=== PATIENT | female | born 1945 | race Caucasian/White ===

== ENCOUNTER 2021-08-06 06:02 | Day surgery (SDC) | payer MEDICARE, BC, SELFPAY ==
[2021-08-06] MEDS: TETRACAINE 0.5% OPHTH 1 DROP EYE-LEFT ×2 (06:32→06:44)
[2021-08-06] MEDS: KETOROLAC OPHTH 0.5% 1 DROP EYE-LEFT ×2 (06:40→06:50)
--- NOTE | 2021-08-06 06:44 | SUR.OPER ---
SHOULDER SCOPE IRRIGATION: Continuous irrigation of operative shoulder with mixture of 3000 NACL and 1cc of 1:1000 epinephrine during procedure. KNEE SCOPE IRRIGATION: Continuous irrigation of operative knee with NACL during procedure. POSITIONING, TUCKED ARM: Patient positioned supine on OR bed. Perioperative team tucked arms bilaterally at patient side with drawsheet. Final approval of positioning by surgeon. POSITIONING SUPINE W/ARMS OUT: Patient positioned supine on OR bed. Perioperative team supported arms bilaterally on arm boards. Final approval of positioning by surgeon.
[2021-08-06] MEDS: ETHYL CHLORIDE 116 ML SPRAY 1 APPLIC TOPICAL (07:00)
[2021-08-06] MEDS: SODIUM CHLORIDE 0.9 % (FLUSH) 10 ML SYRINGE IVF (07:00)
[2021-08-06 07:06] VITALS: BP 189/91; PULSE 70; RESP 20; TEMP 36.5; O2SAT 98
[2021-08-06 07:08] VITALS: BMI 29.2
[2021-08-06] MEDS: BALANCED SALT IRRIG SOLN 15 ML EYE-LEFT ×2 (07:35→07:43)
[2021-08-06] MEDS: TETRACAINE 0.5% OPHTH 2 DROP EYE-LEFT (07:35)
[2021-08-06 07:49] VITALS: BP 189/98; PULSE 70; RESP 16; TEMP 36.4
--- NOTE | 2021-08-06 07:56 | W.ANESCHARGE ---
Anesthesia Charges Start Date/Time Anesthesia Start Date: 08/06/21 Anesthesia Start Time: 07:18 Stop Date/Time Anesthesia Stop Date: 08/06/21 Anesthesia Stop Time: 07:50 Summary Emergency: No Extremes of Age: Over 69-CPT 43412
--- NOTE | 2021-08-06 10:12 | W.ANESCHARGE ---
Anesthesia Charges Start Date/Time Anesthesia Start Date: 08/06/21 Anesthesia Start Time: 07:18 Stop Date/Time Anesthesia Stop Date: 08/06/21 Anesthesia Stop Time: 07:50 Summary Emergency: No Extremes of Age: Over 69-CPT 70598
--- NOTE | 2021-08-06 14:03 | P.PCN_ITS ---
Procedure Note Will [facility] bill your pro fee for this procedure?: Yes Procedure: SURGEON: Mela Oliveira MD PREOPERATIVE DIAGNOSIS: Nuclear sclerotic cataract, left eye. POSTOPERATIVE DIAGNOSIS: Nuclear sclerotic cataract, left eye. NAME OF OPERATION: Phacoemulsification of cataract with posterior chamber intraocular lens implantation in the left eye. ANESTHESIA: Topical. ESTIMATED BLOOD LOSS: Less than 2 cc. COMPLICATIONS: None. PATHOLOGY SPECIMEN: None. INDICATIONS: See consult note for details. The risks, benefits and alternatives of the procedure were explained to the patient, who elected to proceed and signed informed consent to do so. PROCEDURE: The patient was brought to the pre-holding area where the left eye was identified as the operative eye. I placed my initials above this eye. The patient received eye drops consisting of 0.5% tetracaine, 1% tropicamide, 10% phenylephrine, and ketorolac. The patient was then brought to the operating room where the left eye was again identified as the operative eye. The eye was prepped with Betadine and draped in the usual sterile ophthalmic fashion. A #15 super-sharp blade was used to create a paracentesis site. 1% non-preserved intracameral lidocaine was injected into the anterior chamber. Viscoat was injected into the anterior chamber. A 2.4 mm keratome was used to create a three-plane self-sealing incision 1 mm anterior to the temporal limbus. A cystotome was used to create an anterior capsular leaflet. The Utrata forceps were used to extend this to form a continuous curvilinear capsulorrhexis. Hydrodissection was performed. The cataract was removed with phacoemulsification using the mxpypm-hec-uwconwb technique. The irrigation and aspiration tip was used to remove the remaining cortex. Healon was injected into the capsular bag. An GLENN [id number] intraocular lens of 19.5 diopters was injected into the capsular bag. The irrigation and aspiration tip was used to remove the remaining viscoelastic. Balanced salt solution on a cannula was used to hydrate the wound, and the wound was found to be watertight. The pupil was noted to be round. DISPOSITION: The patient was taken to the recovery room and discharged to home in stable condition. The patient was instructed to call me or go to the emergency department with any sudden change, including dramatic loss of vision, severe pain in the eye or eyebrow region, nausea, or vomiting. The patient will follow up in the clinic tomorrow morning.
== END 2021-08-06 08:30 | disposition home or self-care (01) ==
PROVIDERS: PCP Family Medicine; Visit Provider Ophthalmology
PROC: (CPT 66984; principal; 2021-08-06 06:15)
DX: H25.12 Age-related nuclear cataract, left eye (principal)
CPT/HCPCS: 66984; 142; 99100; A9270; J2250; J3010; V2632

== ENCOUNTER 2021-11-07 12:51 | Outpatient (CLI) | payer MEDICARE, BC, SELFPAY | END 2021-11-07 12:52 | disposition home or self-care (01) | LOC: RAD 12:52 | PROVIDERS: PCP Family Medicine; Visit Provider Internal Medicine Pulmonary Disease | DX: R06.00 Dyspnea, unspecified (principal); I35.1 Nonrheumatic aortic (valve) insufficiency; R94.30 Abnormal result of cardiovascular function study, unspecified | CPT/HCPCS: 93306 ==

== ENCOUNTER 2021-11-11 11:44 | Outpatient (CLI) | payer MEDICARE, BC, SELFPAY ==
--- NOTE | 2021-11-11 12:00 | CRLHL7_ITS ---
For Patients: As a result of the Century Cures Act, medical imaging exams and procedure reports are released immediately into your electronic medical record. You may view this report before your referring provider. If you have questions, please contact your health care provider. NUCLEAR MEDICINE VENTILATION PERFUSION LUNG SCAN, 11/11/2021 CLINICAL HISTORY: Dyspnea. TECHNIQUE: 3.4 mCi of mgfimgfpdt-25o-vgcersj MAA has been given intravenously for the perfusion scan. 1 mCi of futpfmkgzp-95c-yqefjgh DTPA has been given as an aerosol for the ventilation scan. FINDINGS: Ventilation imaging demonstrates mild to moderate central deposition of the radiotracer. Otherwise, there is relatively homogeneous distribution of the ventilation. The perfusion is better than the ventilation. There are no ventilation-perfusion mismatches. There is symmetric perfusion to both the right and left lungs. IMPRESSION: The study is low-probability for pulmonary emboli. MURTAZA GORDON M.D. Diagnostic/Nuclear Medicine Radiologist [email or web address] Transcribed: 4:[address]/Dictated by: Murtaza Gordon MD @ 11/11/2021 3:13:00 PM (Electronically Signed)
--- NOTE | 2021-11-11 13:00 | CRLHL7_ITS ---
For Patients: As a result of the Century Cures Act, medical imaging exams and procedure reports are released immediately into your electronic medical record. You may view this report before your referring provider. If you have questions, please contact your health care provider. INDICATION: Dyspnea TECHNIQUE: Chest 2 views. COMPARISON: 10/11/2018 FINDINGS: Cardiovascular and mediastinum: Heart size and vasculature are normal in caliber and appearance. Mediastinum is within normal limits. Lungs and pleural spaces: Lungs are clear. No sign of infiltrate or mass. No sign of pleural effusion. No pneumothorax. Stable 5 millimeter probable calcified granuloma left upper lobe lingular segment. Bones and soft tissues: No significant findings. IMPRESSION: No acute findings. Dictated by Esdras Kothari MD @ 11/11/2021 1:40:52 PM (Electronically Signed)
== END 2021-11-11 11:45 | disposition home or self-care (01) ==
LOC: NM 11:45
PROVIDERS: PCP Family Medicine; Visit Provider Internal Medicine Pulmonary Disease
DX: R06.00 Dyspnea, unspecified (principal)
CPT/HCPCS: 71046; 78582; A9540; A9567

== ENCOUNTER 2021-12-01 10:45 | Outpatient (RCR) | payer MEDICARE, BC, SELFPAY ==
--- NOTE | 2021-10-20 17:20 | OT.OPOE ---
OT Outpatient Ortho Eval OT Outpatient Ortho Eval Start: 10/20/21 16:31 Freq: Status: Active Protocol: Document 10/20/21 16:31 LCN (Rec: 10/20/21 17:10 LCN Desktop) E-signed By Krissy Goodman, OTR/L, CLT OT OP Ortho Eval Details Type Type Eval Complexity Low Outpatient History/Precautions Insurance Information Insurance Information Medicare B Current Condition/Medical Diagnosis Referring Provider Yue Lorenz MD Treatment Diagnosis B Hand pain per Primary OA of hand R and L. Date of Onset 10/14/21 Medical Conditions HTN,Metal Implants,Respiratory ,Fibromyalgia,Arthritis,Latex Allergy Other Conditions COPD, Chronic Fatigue Syndrome , long haul COVID w prolonged recovery Jan 2021 - April 2021 (Sudden bouts of strong fatigue after bathing and some executive function issues, over paid a tip while out, discovered 30 minutes later). H/O TKA 2013, 2018 swallow study. OA of hands, B CMC was diagnosed in [place]. Has progressed from CMC to MP and now to IP's of B thumbs, with >10 degree lateral drift at IP's. Right side is 80% more affected than the L hand side. Medical/Functional History Medical History Reviewed Yes Prior Level of Function/Mobility When pt moved here from [place] 4 years ago, she was much more active, exercising 3 days/week. The cold weather of [place] is easier on her lungs with COPD, but the isolation has been hard and necessary. She is trying to get back into using equipment at [facility]. , no children. Social History Employment Status Retired Current Occupation retired from [employer]. Hobbies Reading, [employer] [facility] Oriented Mental Status Comments Feeling forgetful, slightly scattered when overwhelmed, out in the community since her COVID recovery. Able to keep sequnce of her reading, timely with medications. Ortho Subjective Subjective Subjective Hawa's doing most of cooking due to her fatigue and severe hand pain. Needing help with lifting pots, pans, 1/2 gallon of milk, opening jars/bottles/cans. Handwriting is getting small and shaky. Has been dropping items, including cup of coffee . Has a hard time Manages pain with a hot cup of coffee in her hands, has arthritis gloves, not sure if she can find them. Pain Assessment Pain Present Pain Present Pain Reported Location R Hand/Thumb (moreso than L hand) Description Pressure,Dull, Achy,Throbbing, Cramping,With Movement, Heaviness Intensity 7 Goniometric Comments Goniometric Comments Goniometric Comments iWR EX to 60 of 70 B. Wrist FL to 70 of 85, pulls into R CMC. UD to 40 of 40 , tender at CMC base of R TH. RD 15 of 20. Limited EX of thumb CMC by final 35 degrees of end range. R TH Opposition to SF tip is 5/10 pain. 3/10 with touching RF. Clinical Trials Manager is 20# R ( 7/10 pn at CMC ) and 25# L w 3/10 pn. Donaldson pinch is 9.5# R ( TH IP pain 7 /10) and 14# L. 3 pt pinch is 10# R ( 4/10 pn at TH IP) and 9.5# L ( 4/10 pn at TH IP). OT Objective Data Hand Hand Dominance Right Sensation Sensation Assessment Summary Comments No numbness or tingling. Upper Extremity Special Tests Tenosynovitis Wrist Finklestein Test Positive Right Degenerative Arthritis Hand Trapeziometacarpal Joint Grind Test Positive Left,Positive Right OT Problems Problems Problems Decreased Strength,Decreased Range of Motion,Decreased Fine Motor,Decreased Coordination, Sensory Sensitivity,Lifting, Gripping,Pinching Problems Comments Fatigues to 9/10 effort level from bathing, loses her entire routine for the rest of the day afterwards. Is now having assist in community to wash her hair weekly/Wednesday salon day. Able to attend card club for 90 minutes, tires for the rest of the day after. Combined lunch outing afteran appointment and was affected into the next day. 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 Other Problems Writing,Opening Containers, Dressing,Fasteners Patient Potential Good Assessment Assessment Assessment Hawa Marie is a motivated 75 y /o female who at [facility] 4 years ago had been more active but coping well with her hand OA. Following COVID Jan 2021, struggling with rapid bouts of extended fatigue/chronic fatigue, feeling scattered/ executive function issues, and increased R hand/thumb pain/ edema deformity to the point of nearly not being able to use it at all. Given Hawa's s diagnosis of B hand OA and ? difficulty with edema, pain, ROM and strength loss of R hand/wrist/elbow , she would benefit from skilled OT to address these areas. Occupational Therapy Treatment Plan - OP Potential Rehabilitation Potential Good Set Goals Goals Set with Patient Yes Goals Goals In 8 weeks, Hawa will demonstrate:? 1) Decreased pn to <2/10 80% of the time with sustained gripping, carrying dishes, reading books, light meal prep and playing cards. 2) I HEP for stretching, gradual strengthening and self mgmt strategies. 3) improved L anglesmith helper strength to 25# and pinch to 12# with R thumb pain < 2/10. 4) ??Pt to be fit with functional bracing (for CMC, wrist) and use adaptive strategies to protect joint integrity to support less pain with ADL. 5) Improved energy conservation by identifying 4 strategies she can use to conserve energy during daily ADL/IADL routines, demonstrate improved standing tolerance for kitchen/home tasks to 20 min at < 4/10 effort level, and score 5 pts improvement on the Fatigue FACIT -F scale. Target Date 01/18/22 Progress set Treatment Plan Treatment Plan Evaluation,Joint Mobilization, Manual Therapy,Paraffin Bath, Splinting,Ultrasound, Therapeutic Exercise,Self-Care /Home Management,Education Expected Frequency 1x Week Expected Duration 8-10 Weeks Certification Certification I Certify That: Therapy Services Provided, Therapy Plan Established, Therapy Plan Reviewed / / MD/PCP Signature, NPI # Thanks for the referral!?If you could kindly review our Medicare cert and sign/fax return with your NPI that'd be so helpful!?Thanks and have a great day!?? TALON Yuan/chayo
== END 2022-08-27 23:59 | disposition home or self-care (01) ==
PROVIDERS: PCP Family Medicine; Visit Provider Family Medicine
DX: M19.041 Primary osteoarthritis, right hand (principal); Z51.89 Encounter for other specified aftercare
CPT/HCPCS: 97035; 97110; 97140; 97165; 97535; 97760; X5282

== ENCOUNTER 2022-02-25 07:39 | Outpatient (CLI) | payer MEDICARE, BC, SELFPAY ==
[2022-02-25 11:47] LABS: Albumin* 4.3 g/dL (3.3-5.0)
[2022-02-25 11:48] LABS: Chloride* 107 mmol/L (96-114); Potassium* 4.3 mmol/L (3.6-5.1); Sodium* 141 mmol/L (135-149)
[2022-02-25 11:50] LABS: Bilirubin Total* 0.6 mg/dL (0.1-1.5); Carbon Dioxide* 26 mmol/L (20-32); Cholesterol* 155 mg/dL (90-199); Estimated Glomerular Filt Rate 58 ml/min
[2022-02-25 11:51] LABS: Alanine Aminotransferase* 21 U/L (4-35); Alkaline Phosphatase* 118 U/L (40-150); Aspartate Amino Transferase* 26 U/L (12-35); Blood Urea Nitrogen* 16 mg/dL (7-30); Calcium* 9.7 mg/dL (8.4-10.6); Glucose* 93 mg/dL (60-115); HDL Cholesterol* 45 mg/dL (>=50); LDL Cholesterol Calculated 85 mg/dL (<100); Total Protein* 7.1 g/dL (6.0-8.3); Triglycerides* 124 mg/dL (40-149)
== END 2022-02-25 07:40 | disposition home or self-care (01) ==
PROVIDERS: PCP Family Medicine; Visit Provider Family Medicine
DX: E78.5 Hyperlipidemia, unspecified; I10 Essential (primary) hypertension; E03.9 Hypothyroidism, unspecified; D64.9 Anemia, unspecified; R53.83 Other fatigue
CPT/HCPCS: 80053; 80061; 82728; 84443

== ENCOUNTER 2022-03-10 14:17 | Outpatient (CLI) | payer MEDICARE, BC, SELFPAY ==
--- NOTE | 2022-03-10 14:45 | MR_ITS ---
[address] [address] Phone:?[phone] Fax:?[phone] Referring Physician Information: Yue Lorenz M.D. [address] [facility] [address] Phone:?[phone] Fax:?[phone] Patient:Nadeem Marie D.O.B:?1945 Sex:?Female Phone:? [facility] MRN:?[id number] Exam Date:?03/10/2022 ? EXAM: MRI of the LEFT HIP, without contrast CLINICAL: Bilateral hip pain. Also increased sclerotic changes noted on recent radiographs. COMPARISONS: X-rays dated 02/27/2022. TECHNICAL: MR sequences of the left hip: Axials: PD FS Axial oblique: PD Coronals: PD, T2 Coronal pelvis: T1 and STIR Sagittals: PD and T2 SEDATION: None. CONTRAST: None. FINDINGS: Hip joint: Small volume of fluid is present within the left hip joint. There is mild synovitis within the left hip joint without discrete loose bodies. Grade 2-3 chondral thinning is seen to involve the superior and superomedial left hip joint. Labrum: Evaluation is relatively limited on the axial obliques sequence secondary to artifact. Scattered degenerative changes are seen to involve the majority of the labrum. No perilabral cyst formation identified. Proximal femur: No marrow edema, fracture or osteonecrosis. No discrete osseous lesion identified. Acetabulum: Heterogeneity of the marrow of the left hemipelvis may include subchondral marrow edema involving the left acetabulum about the left hip. There is small subchondral cystic change involving the superior acetabulum. No acetabular fracture site is identified. Ligamentum teres: Intact and unremarkable. Pelvis osseous structures: There is increased heterogeneity of the marrow of the left hemipelvis with a coarsened trabecular pattern of the left hemipelvis seen on the recent radiographs suggestive of Paget's disease. No evidence of pelvic fracture and no discrete pelvic lesions identified. Sacroiliac joints are maintained without marrow signal changes to suggest sacroiliitis or significant arthrosis. No evident arthrosis or changes of osteitis pubis at the symphysis pubis. Myotendinous structures: Gluteus abductors: No convincing insertional tendinopathy or tear of gluteus minimus or medius. Adductors: No demonstrable tendinopathy or strain/tear. Pre-pubic aponeurotic complex: Intact, without evidence of common rectus abdominis-adductor longus aponeurosis or pubic plate lesion. Hamstrings: Intact semimembranosus, semitendinosus and biceps femoris tendons, without tendinopathy or tear. Flexors: Intact iliopsoas and rectus femoris, without strain/tear. External rotators: Intact. The ischiofemoral and quadratus femoris spaces are within normal limits. Gluteal aponeurotic fascia and IT band: Unremarkable. Bursae: No demonstrable trochanteric or iliopsoas bursitis. Intrapelvic structures: Although evaluation of the intrapelvic structures is limited on this exam, no convincing pelvic mass is identified as visualized. IMPRESSION: 1. Grade 2-3 chondral thinning involving the superior and superomedial left hip joint with subchondral reactive change involving the left acetabulum. Scattered degenerative changes involving the majority of the acetabular labrum. 2. 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 3. No evidence of fracture, avascular necrosis or myotendinous injury. [facility] Electronically signed on 03/11/2022 8:41:00 AM by Davey Chiu D.O.
== END 2022-03-10 14:18 | disposition home or self-care (01) ==
PROVIDERS: PCP Family Medicine; Visit Provider Family Medicine
DX: M25.552 Pain in left hip (principal); G89.29 Other chronic pain
CPT/HCPCS: 73721

== ENCOUNTER 2022-06-09 14:53 | Outpatient (CLI) | payer MEDICARE, BC, SELFPAY ==
--- NOTE | 2022-06-09 15:20 | CRLHL7_ITS ---
For Patients: As a result of the Cures Act, medical imaging exams and procedure reports are released immediately into your electronic medical record. You may view this report before your referring provider. If you have questions, please contact your health care provider. BILATERAL SCREENING MAMMOGRAM WITH COMPUTER-AIDED DETECTION AND TOMOSYNTHESIS TECHNIQUE: CC and MLO views were obtained. These mammographic images have been obtained using full-field digital technique. These mammographic images were interpreted with the benefit of computer-aided detection. Breast Tomosynthesis was used in this interpretation. COMPARISON FILM: 03/19/21, 03/15/20, 03/09/19. FINDINGS: There are scattered areas of fibroglandular density IMPRESSION: There is no radiographic evidence for malignancy. ASSESSMENT: BI-RADS Category 1: Negative RECOMMENDATION: Routine screening mammogram in 1 year. A lay language report of this examination will be provided to the patient. Esdras Alexander M.D. Diagnostic Radiologist [email or web address] [email or web address]/[email or web address] Transcribed: 1:49 p.fior hager/Dictated by: Esdras Alexander MD @ 06/10/2022 11:12:00 AM (Electronically Signed)
== END 2022-06-09 14:54 | disposition home or self-care (01) ==
LOC: MAMMO 14:54
PROVIDERS: PCP Family Medicine; Visit Provider Family Medicine
DX: Z12.31 Encounter for screening mammogram for malignant neoplasm of breast (principal)
CPT/HCPCS: 77063; 77067

== ENCOUNTER 2023-02-19 07:50 | Outpatient (CLI) | payer MEDICARE, BC, SELFPAY ==
--- OUTSIDE RECORDS SUMMARY | 2023-02-25 15:48 | XMS_ITS | Referral Summary ---
Author Name Unknown Organization [facility] Address [address] [place] [id number] Care Team Providers Care Editor House Organ Name Role Phone Yue Lorenz MD Primary Care Provider + Allergies Active Allergy Reactions Criticality Noted Date Comments Latex 11/22/2018 Social History Tobacco Use Types Packs/Day Years Used Date Smoking Tobacco: Never Assessed Adolescent Education Answer Date Record ed Getting School Help Needed Not on file 10/30 Sex and Gender Information Value Date Recorded Sex Assigned at Not on file Gender Identity Not on file Sexual Orientation Not on file Plan of Treatment Not on file Care Teams Editor House Organ Relationship Specialty Start Date End Date Yue Lorenz MD [facility] [address] [place] [address] PCP - General Family Practice 11/09/18
--- OUTSIDE RECORDS SUMMARY | 2023-02-25 15:48 | XMS_ITS | Encounter Summary ---
Author Name Unknown Organization [facility] Address [address] [place] [address] Care Team Providers Care Machine Operator Packaging Name Role Phone Unavailable Primary Care Provider Unavailabl e Reason for Visit * Outpatient (Routine) - Closed Specialty Diagnoses / Procedures Referred By Paxton cortes Referred To Contact Diagnoses Fatigue Insomnia Procedures Home sleep apnea test (HSAT) Francisco Javier Arvizu M.D., M.P.H. [address] [address] [facility] Referral ID Status Reason Start Date Expiration Date Visits Re quested Visits Authorized [id number] Closed 01/13/2022 01/13/2023 1 1 Encounter Details Date Type Department Care Team (Latest Contact Info) Description 03/18/2022 7:11 AM [facility] - 03/21/2022 11:59 PM [facility] [place], [place] [address] [place] [address] Francisco Javier Arvizu M.D., M.P.H. [address] [address] Discharge Disposition: Home or Self Care Social History Tobacco Use Types Packs/Day Years Used Date Smoking Tobacco: Never Smokeless Tobacco: Never Humiliation, Afraid, Rape, and Kick questionnair e Answer Date Recorded Within the last year, have y ou been afraid of your partner or ex-partner? No 03/19/2022 Within the last year, have y ou been humiliated or emotionally abused in other ways by your partner or ex-partner? No Within the last year, have y ou been kicked, hit, slapped, or otherwise physically hurt by your partner or ex-partner? No 03/19/2022 Within the last year, have y ou been raped or forced to have any kind of sexual activity by your partner or ex-partner? No 03/19/2022 Social Connection and Isolat ion Panel [NHANES] Answer Date Recorded In a typical week, how many times do you talk on the phone with family, friends, or neighbors? Once a week 03/19/2022 How often do you get togethe r with friends or relatives? Once a week 03/19/2022 How often do you attend chur or alevism services? More than 4 times per year 03/19/2022 Do you belong to any clubs o r organizations such as roman catholic groups, unions, fraternal or athletic groups, or school groups? Yes 03/19/2022 How often do you attend meet ings of the clubs or organizations you belong to? More than 4 times per year 03/19/2022 Are you , , di vorced, , never , or living with a partner? 03/19/2022 AUDIT-C Answer Date Recorded Q1: How often do you have a drink containing alcohol? Monthly or less 03/19/2022 Q2: How many drinks containi ng alcohol do you have on a typical day when you are drinking? Patient does not drink Q3: How often do you have si x or more drinks on one occasion? Never 03/19/2022 Overall Financial Resource Strain (CARDIA) Answe r Date Recorded How hard is it for you to pa y for the very basics like food, housing, medical care, and heating? Not hard at all 03/19/2022 [facility] of Occupat ional Health - Occupational Stress Questionnaire Answer Date Recorded Do you feel stress - tense, restless, nervous, or anxious, or unable to sleep at night because your mind is troubled all the time - these days? To some extent 03/19/2022 Exercise Vital Sign Answer Date Recorde d On average, how many days pe r week do you engage in moderate to strenuous exercise (like a brisk walk)? 0 days 03/19/2022 On average, how many minutes do you engage in exercise at this level? 0 min 03/19/2022 Hunger Vital Sign Answer Date Recorded Within the past 12 months, y ou worried that your food would run out before you got the money to buy more. Never true 03/19/19 Within the past 12 months, t he food you bought just didn't last and you didn't have money to get more. Never true 03/19/2022 PRAPARE - Transportation Answer Date Re corded In the past 12 months, has l ack of transportation kept you from medical appointments or from getting medications? No 10/2022 In the past 12 months, has l ack of transportation kept you from meetings, work, or from getting things needed for daily living? No 03/19/2022 Housing Stability Vital Sign Answer Romulo e Recorded In the last 12 months, was t here a time when you were not able to pay the mortgage or rent on time? No 03/19/2022 In the last 12 months, how many places have you lived? 1 03/19/2022 In the last 12 months, was t here a time when you did not have a steady place to sleep or slept in a residential (including now)? No 03/19/2022 Nutrition Answer Date Recorded Nutrition: EVOO Fat Source No 03/19 On average, how many serving s of fruits and vegetables do you eat per day (serving size is equal to 1 cup or approximately the size of a tennis ball)? 4-5 03/19/2022 Dental Answer Date Recorded Dental: Regular Dentist Yes 03/19/19 Employment Answer Date Recorded Employment status Retired 03/19/2022 Education Answer Date Recorded What is the highest level of school you have completed or the highest degree you have received? 12th grade 03/19/2022 Sex and Gender Information Value Date Recorded Sex Assigned at Female 03/19/2022 4:22 PM MECHANICAL DRAWING TEACHER Gender Identity Female 03/19/2022 4:22 PM MECHANICAL DRAWING TEACHER Sexual Orientation Straight 03/19/2022 4: 22 PM MECHANICAL DRAWING TEACHER documented as of this encounter Medications at Time of Discharge Medication Sig Dispensed Refills Start Date End Date acetaminophen (TYLENOL 8 HR) 650 mg ER tablet 1,300 mg as needed. 0 10/14/2021 acetaminophen (TYLENOL) 500 mg tablet Take 500 mg by mouth every 6 (six) hours as needed for pain. 0 albuterol 90 mcg/actuation inhaler Inhale every 6 (six) hours as needed for wheezing. 0 amoxicillin (AMOXIL) 875 mg tablet Take 875 mg by mouth as needed. For phlegm [address] tablet Take 81 mg by mouth daily. 0 atorvastatin (LIPITOR) 40 mg tablet 40 mg daily. 0 12/13/2021 bisacodyL (DULCOLAX) 5 mg EC tablet Take 10 mg by mouth once. 0 calcium carbonate-vitamin D3 (Calcium 600 with Vitamin D3) 600 mg-10 mcg (400 unit) tablet,chewable Chew 2 (two) times a day. 0 cetirizine (ZyrTEC) 10 mg tablet Take 10 mg by mouth daily. 0 diphenhydrAMINE-acetamin ophen (TYLENOL PM) 25-500 mg per tablet Take 1 tablet by mouth at bedtime as needed for sleep. 0 guaiFENesin (MUCINEX) 600 mg 12 hr tablet Take 600 mg by mouth as needed for cough. 0 metoprolol succinate (TOPROL-XL) 50 mg 24 hr tablet 50 mg 2 (two) times a day. 0 11/20/2021 montelukast (SINGULAIR) 10 mg tablet daily. 0 12/13/2021 gihoihnbajve-ghrngzwc-BF -lycopene-lutein (CENTRUM SILVER) 0.4 mg-300 mcg- 250 mcg tablet Take 1 tablet by mouth daily. 0 polyethylene glycol (MIRALAX) 17 gram powder packet Take 17 g by mouth daily. Dissolve each 17 g dose in 240 mLs (8 ounces) of beverage. 0 predniSONE (DELTASONE) 10 mg tablet Take 10 mg by mouth as needed. Excessive phlegm and shortness of breath 0 Synthroid 88 mcg tablet Take 88 mcg by mouth daily. 0 12/26/2021 Trelegy Ellipta 100-62.5-25 mcg inhaler daily. One puff daily 0 12/14/19 22 UNABLE TO FIND Med Name: ZZZ Quill 0 wheat dextrin (BENEFIBER) 3 gram/3.5 gram packet Take 1 packet by mouth daily. 0 documented as of this encounter Plan of Treatment Not on file documented as of this encounter Procedures Procedure Name Priority Date/Time Associated Diagnosis Comments CA CLINICAL RESEARCH MONITOR STDY UNATTND HRT RATE O2 Routine 03/18/2022 8:19 AM MECHANICAL DRAWING TEACHER Fatigue Insomnia documented in this encounter Results * Home sleep apnea test (HSAT) (03/18/2022 8:19 AM MECHANICAL DRAWING TEACHER) Narrative ONBASE - 03/18/2022 1:13 PM MECHANICAL DRAWING TEACHER SUMMARY Home sleep apnea testing (WatchPaT) demonstrated a probable apnea hypopnea index (pAHI) of 8.2 per hour, with probable respiratory disturbance index (pRDI) of 25.7 per hour, ??and with 0.4 central apneas per hour. Oxyhemoglobin saturation eduard was 90 %, mean was 94 %, and T88 (recording time percentage below ideal) was 0.0 minutes). Total recording time was 408.0 ??minutes, with estimated total sleep time of 309.0 minutes. CLINICAL INTERPRETATION Mild obstructive sleep apnea. ?? RECOMMENDATION: Autotitrating CPAP spanning 5-15 cm H20 can be prescribed for the patient, with appropriate counselling regarding PAP usage, if/as clinically indicated. Francisco Javier Arvizu M.D., M.P.H. SLEEP CENTER ORDERABLES ONBASE NA documented in this encounter Visit Diagnoses Not on filedocumented in this encounter
--- OUTSIDE RECORDS SUMMARY | 2023-02-25 15:48 | XMS_ITS | Referral Summary ---
Author Name Unknown Organization [facility] Address [address] [place] [address] Care Team Providers Care Development Administrator Name Role Phone Unavailable Primary Care Provider Unavailabl e Source Comments Patient records contain information from all sites at [facility]. For routine questions regarding patient records, call [phone] during business hours, M-F 8:00 AM - 5:00 PM Central Time. Record requests for emergency care only can be directed to [phone] at any time.[facility] Allergies Active Allergy Reactions Criticality Noted Date Comments Cefdinir Rash 01/13/2022 Clarithromycin Rash 01/13/2022 Dextromethorphan Rash 01/13/2022 Guaifenesin Rash 01/13/2022 Latex Rash 11/22/2018 Methylprednisolone Other (see comments) 022 Blood pressure problem Moxifloxacin Other (see comments) 01/13/2022 Phenylephrine Rash 01/13/2022 Medications Medication Sig Dispensed Refills Start Date End Date Status atorvastatin (LIPITOR) 40 mg tablet 40 mg daily. 0 12/13/2021 Active Trelegy Ellipta 100-62.5-25 mcg inhaler daily. One puff daily 0 12/13/2021 Active Synthroid 88 mcg tablet Take 88 mcg by mouth daily. 0 12/26/2021 Active metoprolol succinate (TOPROL-XL) 50 mg 24 hr tablet 50 mg 2 (two) times a day. 0 11/20/2021 Active montelukast (SINGULAIR) 10 mg tablet daily. 0 12/13/2021 Active predniSONE (DELTASONE) 10 mg tablet Take 10 mg by mouth as needed. Excessive phlegm and shortness of breath 0 Active amoxicillin (AMOXIL) 875 mg tablet Take 875 mg by mouth as needed. For phlegm 0 Active albuterol 90 mcg/actuation inhaler Inhale every 6 (six) hours as needed for wheezing. 0 Active guaiFENesin (MUCINEX) 600 mg 12 hr tablet Take 600 mg by mouth as needed for cough. 0 Active aspirin [address] tablet Take 81 mg by mouth daily. 0 Active multivitamin-minerals -WF-ryehjlyb-dukubs (CENTRUM SILVER) 0.4 mg-300 mcg- 250 mcg tablet Take 1 tablet by mouth daily. 0 Active bisacodyL (DULCOLAX) 5 mg EC tablet Take 10 mg by mouth once. 0 Active calcium carbonate-vitamin D3 (Calcium 600 with Vitamin D3) 600 mg-10 mcg (400 unit) tablet,chewable Chew 2 (two) times a day. 0 Active cetirizine (ZyrTEC) 10 mg tablet Take 10 mg by mouth daily. 0 Active polyethylene glycol (MIRALAX) 17 gram powder packet Take 17 g by mouth daily. Dissolve each 17 g dose in 240 mLs (8 ounces) of beverage. 0 Active wheat dextrin (BENEFIBER) 3 gram/3.5 gram packet Take 1 packet by mouth daily. 0 Active diphenhydrAMINE-aceta minophen (TYLENOL PM) 25-500 mg per tablet Take 1 tablet by mouth at bedtime as needed for sleep. 0 Active acetaminophen (TYLENOL) 500 mg tablet Take 500 mg by mouth every 6 (six) hours as needed for pain. 0 Active UNABLE TO FIND Med Name: ZZZ Quill 0 A ctive acetaminophen (TYLENOL 8 HR) 650 mg ER tablet 1,300 mg as needed. 0 10/14/2021 Activ e Active Problems Problem Noted Date Diagnosed Date Obstructive Sleep Apnea Adult 03/24/2022 Fatigue 01/13/2022 Insomnia 01/13/2022 Social History Tobacco Use Types Packs/Day Years Used Date Smoking Tobacco: Never Smokeless Tobacco: Never Tobacco Cessation:Counseling Given: Not Answered Humiliation, Afraid, Rape, and Kick questionnair e [...] 03/19/2022 How often do you attend chur ch or rastafarian services? More than 4 times per year 03/19/2022 Do you belong to any clubs o r organizations such as religious groups, unions, fraternal or athletic groups, or [...] and heating? Not hard at all 03/19/2022 [facility] of Occupat ional Health - Occupational Stress [...] place to sleep or slept in a usp (including now)? No 03/19/2022 Nutrition Answer Date [...] Sex Assigned at Female 03/19/2022 4:22 PM TIMBER FALLER Gender Identity Female 03/19/2022 4:22 PM TIMBER FALLER Sexual Orientation Straight 03/19/2022 4: 22 PM TIMBER FALLER Last Filed Vital Signs Vital Sign Reading Time Taken Comments Blood Pressure 133/81 03/24/2022 8:18 AM TIMBER FALLER Pulse 79 03/24/2022 8:18 AM TIMBER FALLER Temperature - - Respiratory Rate - - Oxygen Saturation 98% 01/13/2022 9:07 AM TIMBER FALLER room air Inhaled Oxygen Concentration - - Weight 74.1 kg (163 lb 5.8 oz) 03/24/2022 8:18 A M TIMBER FALLER Height 157.4 cm (5' 1.97) 01/13/2022 10:46 AM C Body Mass Index 29.91 01/13/2022 10:46 AM TIMBER FALLER Plan of Treatment Not on file
--- OUTSIDE RECORDS SUMMARY | 2023-02-25 15:48 | XMS_ITS | Encounter Summary ---
Author Name Unknown Organization [facility] Address [address] [place] [address] Care Team Providers Care Medical Practice Assistant Name Role Phone Unavailable Primary Care Provider Unavailabl e Reason for Visit * Reason Comments Sleep test results Follow up * Outpatient (Routine) - Closed Specialty Diagnoses / Procedures Referred By Paxton cortes Referred To Contact Neurology Francisco Javier Arvizu M.D., M.P.H. [address] [address] [facility] Referral ID Status Reason Start Date Expiration Date Visits Re quested Visits Authorized [id number] Closed 01/13/2022 01/12/2025 1 1 Encounter Details Date Type Department Care Team (Late st Contact Info) Description 03/24/2022 8:45 AM [facility]OS[facility]ITAL[facility] Office Visit Department of Neurology in [address] [address] Francisco Javier Arvizu M.D., M.P.H. [address] [address] Fatigue (Primary Dx); Insomnia; Obstructive Sleep Apnea Adult Social History Tobacco Use Types Packs/Day Years [...] How often do you attend chur or mormonism services? More than 4 times per year 03/19/2022 Do you belong to any clubs o r organizations such as episcopalian groups, unions, fraternal or athletic groups, or [...] and heating? Not hard at all 03/19/2022 [facility] of Occupat ional Health - Occupational Stress [...] place to sleep or slept in a snf (including now)? No 03/19/2022 Nutrition Answer Date [...] Sex Assigned at Female 03/19/2022 4:22 PM [facility]OSPITAL[employer] Gender Identity Female 03/19/2022 4:22 PM [facility] Sexual Orientation Straight 03/19/2022 4: 22 PM [facility]OSPITAL[facility] [employer] documented as of this encounter Last Filed Vital Signs Vital Sign Reading Time Taken Comments Blood Pressure 133/81 03/24/2022 8:18 AM HOSPITAL[facility] WORKERS Pulse 79 03/24/2022 8:18 AM [facility]OS[facility] Temperature - - Respiratory Rate - - Oxygen Saturation - - Inhaled Oxygen Concentration - - Weight 74.1 kg (163 lb 5.8 oz) 03/24/2022 8:18 A M HOSPITAL[facility] Height - - Body Mass Index 29.91 01/13/2022 10:46 AM [facility]PITAL[facility] documented in this encounter Progress Notes * Francisco Javier Arvizu M.D., M.P.H. - 03/24/2022 8:45 AM [facility] SUBJECTIVE HISTORY OF PRESENT ILLNESS This 76-year-old patient returns for follow-up after her WatchPAT home sleep apnea test. You will recall the patient is referred by a sleep physician in the [facility], a smoke eater for symptoms of fatigue started after COVID. Her WatchPAT home sleep apnea test was reviewed today and showed a probable AHI of 8.2 and probable RDI of 25.7. The patient was skeptical that she would slept at all. She is one who likes to document things and she brings in a sleep log included what of the night shewear that test. She estimates she only slept about an hour that night but this total sleep time estimated to be just over 5 hours according to the Watch-PAT study. I explained to her that most peoplesleep more than they think they do and that that was my experience as well. She says she could not wear a CPAP mask and we discussed positional therapy which would work a little bit for her. Her AHI is worse when she is supine and in REM sleep according to the Watch-PAT. Thepatient is skeptical that she sleeps on her back but the Watch-PAT recorded that she did. We also talked about a mandibular advancement device and the inspire device. Unfortunately for her her sleep apnea is not bad enough for the inspire device add she would have already had failed the CPAP device. She brings in a sleep log that shows that she is in bed for several more hours per day then she sleeping. OBJECTIVE PHYSICAL EXAMINATION BP 133/81 (BP Location: Right arm, Patient Position: Sitting, Cuff Size: Regular) Pulse 79 Wt 74.1 kg BMI 29.91 kg/m?? Neurological Exam Cognition: Alert and oriented x 4. Cranial Nerves: II-XII intact and symmetric. Gait: Normal. 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 I think inflammation in her MORTGAGE BANKER partly explains some of her fatigue. We do not have an easy way to treat that. I shared that with her. #2 Insomnia She has some degree of insomnia as noted on her sleep log. I think it is potentially less than she believes because she slept substantially more Watch- PAT than she did on her personal sleep log. #3 Obstructive Sleep Apnea Adult She is mild obstructive sleep apnea that is worse when supine and in REM sleep she does not want treatment for that now but I do believe that treating her sleep disordered breathing be one of the keys to try to improve in her fatigue if not the only answer. Other orders - Neurology office visit (clinic) I personally spent 40 minutes in care of the patient today. Time includes both non face to face andface to face patient care. Patient was counseled regarding weight as a risk factor for sleep disordered breathing. The patientwas counseled on driving while drowsy. Francisco Javier Arvizu M.D., M.P.H. [employer] WORKERS documented in this encounter Plan of Treatment Not on file documented as of this encounter Visit Diagnoses Diagnosis Fatigue- Primary Insomnia Obstructive Sleep Apnea Adult documented in this encounter
--- OUTSIDE RECORDS SUMMARY | 2023-02-25 15:48 | XMS_ITS | Clinical Summary ---
Author Name Unknown Organization [facility] Address [address] [place] [id number] Care Team Providers Care Sales Solutions Associate Name Role Phone Yue Lorenz MD Primary [...] Orientation Not on file Plan of Treatment Health Maintenance Due Date Last Done Comments ADVANCE CARE PLANNING 1945 ANNUAL REVIEW OF HM ORDERS 1945 DEXA 1945 COVID-19 Vaccine (#1) 04/30/1945 HEPATITIS C SCREENING 1962 DTAP/TDAP/TD IMMUNIZATION (1 - Tdap) 1969 LIPID 1989 ZOSTER IMMUNIZATION (1 of 2) 1994 RSV VACCINE ( & 60+ ) (1 - 1-dose 60+ series) 2004 FALL RISK ASSESSMENT 2009 MEDICARE ANNUAL WELLNESS VISIT 2009 Pneumococcal Vaccine: 65+ Ye ars (1 of 1 - PCV) 2009 INFLUENZA VACCINE (#1) 2022 11/09/2018 PHQ-2 (once per calendar year) 2023 HPV IMMUNIZATION Aged Out No longer e ligible based on patient's age to complete this topic IPV IMMUNIZATION Aged Out No longer e ligible based on patient's age to complete this topic MENINGITIS IMMUNIZATION Aged Out No l onger eligible based on patient's age to complete this topic RSV MONOCLONAL ANTIBODY Aged Out No l onger eligible based on patient's age to complete this topic Care Teams Sales Solutions Associate Relationship Specialty Start Date End Date Yue Lorenz MD [facility] [address] [place] [address] PCP - General Family Practice 11/09/18
--- OUTSIDE RECORDS SUMMARY | 2023-02-25 15:48 | XMS_ITS | Clinical Summary ---
Author Name Unknown Organization [facility] Address [address] [place] [address] Care Team Providers Care Pressure Steamer Tender Name Role Phone Unavailable Primary Care Provider Unavailabl e Source Comments Patient records contain information from all sites at [facility]. For routine questions regarding patient records, call [phone] during business hours, M-F 8:00 AM - 5:00 PM Central Time. Record requests for emergency care only can be directed to [phone] at any time.[facility] Allergies Active Allergy Reactions Criticality Noted Date [...] mg by mouth daily. 0 Active multivitamin-minerals -EA-letyodmv-amhzai (CENTRUM SILVER) 0.4 mg-300 mcg- 250 mcg [...] often do you attend chur ch or latter-day services? More than 4 times per year 03/19/2022 Do you belong to any clubs o r organizations such as rastafari groups, unions, fraternal or athletic groups, or [...] and heating? Not hard at all 03/19/2022 [facility] of Occupat ional Health - Occupational Stress [...] place to sleep or slept in a correction (including now)? No 03/19/2022 Nutrition Answer Date [...] Sex Assigned at Female 03/19/2022 4:22 PM CERTIFIED INCOME TAX PREPARER Gender Identity Female 03/19/2022 4:22 PM CERTIFIED INCOME TAX PREPARER Sexual Orientation Straight 03/19/2022 4: 22 PM CERTIFIED INCOME TAX PREPARER Last Filed Vital Signs Vital Sign Reading Time Taken Comments Blood Pressure 133/81 03/24/2022 8:18 AM CERTIFIED INCOME TAX PREPARER Pulse 79 03/24/2022 8:18 AM CERTIFIED INCOME TAX PREPARER Temperature - - Respiratory Rate - - Oxygen Saturation 98% 01/13/2022 9:07 AM CERTIFIED INCOME TAX PREPARER room air Inhaled Oxygen Concentration - - Weight 74.1 kg (163 lb 5.8 oz) 03/24/2022 8:18 A M CERTIFIED INCOME TAX PREPARER Height 157.4 cm (5' 1.97) 01/13/2022 10:46 AM C Body Mass Index 29.91 01/13/2022 10:46 AM CERTIFIED INCOME TAX PREPARER Plan of Treatment Health Maintenance Due Date Last Done Comments Hepatitis C Screening 1945 Thyroid Stimulating Hormone (TSH) test for thyroid function 1944 Zoster Vaccines (2 of 2) 01/30/2017 12/05/2016 Depression Screening (Annual PHQ-2) 02/08/2023 Fall Risk Screen (Annual) 02/08/2023 DTaP,Tdap,and Td Vaccines (2 - Td or Tdap) 11/09/2028 11/09/2018 Pneumococcal vaccine (65+ years) Completed 03/12/19 17, 09/21/2013 Influenza Vaccine Completed 12/07/2022, , 11/14/2020, Additional history exists COVID-19 Vaccine Completed 02/23/2023, 10/2021, 12/03/2020, Additional history exists
--- OUTSIDE RECORDS SUMMARY | 2023-02-25 15:48 | XMS_ITS ---
Author Name Unknown Organization [facility] Address [address] [place] [address] Care Team Providers Care Production Broacher Name Role Phone Unavailable Unavailable Unavailable Surgery Details Not on file Complications Check Surgery Details section. Procedure Estimated Blood Loss Check Surgery Details section. Procedure Findings Check Surgery Details section. Procedure Specimens Taken Check Surgery Details section.
--- OUTSIDE RECORDS SUMMARY | 2023-02-25 15:48 | XMS_ITS | Encounter Summary ---
Author Name Unknown Organization [facility] Address [address] [place] [address] Care Team Providers Care Director Of Veterans Affairs Name Role Phone Unavailable Primary Care Provider Unavailabl e Reason for Referral * Outpatient (Routine) - Closed Specialty Diagnoses / Procedures Referred By Paxton cortes Referred To Contact Diagnoses Fatigue Insomnia Procedures Home sleep apnea test (HSAT) Francisco Javier Arvizu M.D., M.P.H. [address] [address] [facility] Referral ID Status Reason Start Date Expiration Date Visits Re quested Visits Authorized [id number] Closed 01/13/2022 01/13/2023 1 1 RVISORY LIFEGUARD Reason for Visit * Outpatient (Routine) - Closed Specialty Diagnoses / Procedures Referred By Paxton cortes Referred To Contact Diagnoses Fatigue Insomnia Procedures Home sleep apnea test (HSAT) Francisco Javier Arvizu M.D., M.P.H. [address] [address] [facility] Referral ID Status Reason Start Date Expiration Date Visits Re quested Visits Authorized [id number] Closed 01/13/2022 01/13/2023 1 1 Encounter Details Date Type Department Care Team (Latest Contact Info) Description 03/17/2022 2:04 PM SUPERVISORY LIFEGUARD - 03/20/2022 11:59 PM SUPERVISORY LIFEGUARD [facility] [place], [place] [address] [place] [address] Francisco Javier Arvizu M.D., M.P.H. [address] [address] Fatigue; Insomnia Discharge Disposition: Home or Self Care Social [...] How often do you attend chur or advent services? More than 4 times per year 03/19/2022 Do you belong to any clubs o r organizations such as taoism groups, unions, fraternal or athletic groups, or [...] and heating? Not hard at all 03/19/2022 [facility] Occupat ional Health - Occupational Stress [...] place to sleep or slept in a long term (including now)? No 03/19/2022 Nutrition Answer Date [...] Sex Assigned at Female 03/19/2022 4:22 PM SUPERVISORY LIFEGUARD Gender Identity Female 03/19/2022 4:22 PM SUPERVISORY LIFEGUARD Sexual Orientation Straight 03/19/2022 4: 22 PM SUPERVISORY LIFEGUARD documented as of this encounter Medications at [...] (SINGULAIR) 10 mg tablet daily. 0 12/13/2021 eyhgltudezfw-dmnkwydb-SK -lycopene-lutein (CENTRUM SILVER) 0.4 mg-300 mcg- 250 [...] Procedure Name Priority Date/Time Associated Diagnosis Comments [place] PRECISION ASSEMBLY INSPECTOR STDY UNATTND HRT RATE O2 Routine 03/18/2022 8:19 AM SUPERVISORY LIFEGUARD Fatigue Insomnia documented in this encounter Results * Home sleep apnea test (HSAT) (03/18/2022 8:19 AM SUPERVISORY LIFEGUARD) Narrative ONBASE - 03/18/2022 1:13 PM SUPERVISORY LIFEGUARD SUMMARY Home sleep apnea testing (WatchPaT) demonstrated [...] NA documented in this encounter Visit Diagnoses Diagnosis Fatigue Insomnia documented in this encounter
== END 2023-02-19 07:51 | disposition home or self-care (01) ==
PROVIDERS: PCP Family Medicine; Referring Provider Family Medicine; Visit Provider Family Medicine
DX: E03.9 Hypothyroidism, unspecified (principal); E78.5 Hyperlipidemia, unspecified; I10 Essential (primary) hypertension; M85.89 Other specified disorders of bone density and structure, multiple sites; M85.80 Other specified disorders of bone density and structure, unspecified site
CPT/HCPCS: 80053; 80061; 82306; 84443

== ENCOUNTER 2023-03-16 11:24 | Outpatient (CLI) | payer MEDICARE, BC, SELFPAY ==
--- OUTSIDE RECORDS SUMMARY | 2023-03-17 07:18 | XMS_ITS | Referral Summary ---
Author Name Unknown Organization [facility] Address [address] [place] [address] Care Team Providers Care Medical Claims Representative Name Role Phone Unavailable Primary Care Provider Unavailabl e Source Comments Patient records contain information from all sites at [facility]. For routine questions regarding patient records, call [phone] during business hours, M-F 8:00 AM - 5:00 PM Central Time. Record requests for emergency care only can be directed to [phone] at any time.[facility] Allergies Active Allergy Reactions Criticality Noted Date [...] mg by mouth daily. 0 Active multivitamin-minerals -FL-qomfsgkn-ghdodp (CENTRUM SILVER) 0.4 mg-300 mcg- 250 mcg [...] often do you attend chur ch or episcopalian services? More than 4 times per year 03/19/2022 Do you belong to any clubs o r organizations such as oriental orthodox groups, unions, fraternal or athletic groups, or [...] and heating? Not hard at all 03/19/2022 [facility] of Occupat ional Health - Occupational Stress [...] place to sleep or slept in a longterm (including now)? No 03/19/2022 Nutrition Answer Date [...] Sex Assigned at Female 03/19/2022 4:22 PM DIRECTOR EDUCATIONAL RADIO Gender Identity Female 03/19/2022 4:22 PM DIRECTOR EDUCATIONAL RADIO Sexual Orientation Straight 03/19/2022 4: 22 PM DIRECTOR EDUCATIONAL RADIO Last Filed Vital Signs Vital Sign Reading Time Taken Comments Blood Pressure 133/81 03/24/2022 8:18 AM DIRECTOR EDUCATIONAL RADIO Pulse 79 03/24/2022 8:18 AM DIRECTOR EDUCATIONAL RADIO Temperature - - Respiratory Rate - - Oxygen Saturation 98% 01/13/2022 9:07 AM DIRECTOR EDUCATIONAL RADIO room air Inhaled Oxygen Concentration - - Weight 74.1 kg (163 lb 5.8 oz) 03/24/2022 8:18 A M DIRECTOR EDUCATIONAL RADIO Height 157.4 cm (5' 1.97) 01/13/2022 10:46 AM C Body Mass Index 29.91 01/13/2022 10:46 AM DIRECTOR EDUCATIONAL RADIO Plan of Treatment Not on file
--- OUTSIDE RECORDS SUMMARY | 2023-03-17 07:18 | XMS_ITS | Clinical Summary ---
Author Name Unknown Organization [facility] Address [address] [place] [address] Care Team Providers Care Mixer Attendant Name Role Phone Unavailable Primary Care Provider Unavailabl e Source Comments Patient records contain information from all sites at [facility]. For routine questions regarding patient records, call [phone] during business hours, M-F 8:00 AM - 5:00 PM Central Time. Record requests for emergency care only can be directed to [phone] at any time.[facility] Allergies Active Allergy Reactions Criticality [...] mg by mouth daily. 0 Active multivitamin-minerals -JJ-wnrckjui-ahzxpt (CENTRUM SILVER) 0.4 mg-300 mcg- 250 mcg [...] often do you attend chur ch or druze services? More than 4 times per year [...] and heating? Not hard at all 03/19/2022 [facility] of Occupat ional Health - Occupational Stress [...] Sex Assigned at Female 03/19/2022 4:22 PM METAL MINER BLASTING Gender Identity Female 03/19/2022 4:22 PM METAL MINER BLASTING Sexual Orientation Straight 03/19/2022 4: 22 PM METAL MINER BLASTING Last Filed Vital Signs Vital Sign Reading Time Taken Comments Blood Pressure 133/81 03/24/2022 8:18 AM METAL MINER BLASTING Pulse 79 03/24/2022 8:18 AM METAL MINER BLASTING Temperature - - Respiratory Rate - - Oxygen Saturation 98% 01/13/2022 9:07 AM METAL MINER BLASTING room air Inhaled Oxygen Concentration - - Weight 74.1 kg (163 lb 5.8 oz) 03/24/2022 8:18 A M METAL MINER BLASTING Height 157.4 cm (5' 1.97) 01/13/2022 10:46 AM C Body Mass Index 29.91 01/13/2022 10:46 AM METAL MINER BLASTING Plan of Treatment Health Maintenance Due Date [...]
--- OUTSIDE RECORDS SUMMARY | 2023-03-17 07:19 | XMS_ITS ---
Author Name Unknown Organization [facility] Address [address] [place] [address] Care Team Providers Care Adult Basic Education Instructor Name Role Phone Unavailable Unavailable Unavailable Surgery Details Not on file Complications Check Surgery Details section. Procedure Estimated Blood Loss Check Surgery Details section. Procedure Findings Check Surgery Details section. Procedure Specimens Taken Check Surgery Details section.
--- OUTSIDE RECORDS SUMMARY | 2023-03-17 07:19 | XMS_ITS | Encounter Summary ---
Author Name Unknown Organization [facility] Address [address] [place] [address] Care Team Providers Care Bicycle Mechanic Name Role Phone Unavailable Primary Care Provider Unavailabl e Reason for Visit * Reason Comments Sleep test results Follow up * Outpatient (Routine) - Closed Specialty Diagnoses / Procedures Referred By Paxton cortes Referred To Contact Neurology Francisco Javier Arvizu M.D., M.P.H. [address] [place] [address] [facility] Region Referral ID Status Reason Start Date Expiration Date Visits Re quested Visits Authorized [id number] Closed 01/13/2022 01/12/2025 1 1 Encounter Details Date Type Department Care Team (Late st Contact Info) Description 03/24/2022 8:45 AM PHARMACY OPERATIONS COORDINATOR Office Visit Department of Neurology in [address] [address] Francisco Javier Arvizu M.D., M.P.H. [address] [place] [address] Fatigue (Primary Dx); Insomnia; Obstructive Sleep Apnea [...] How often do you attend chur or anabaptist services? More than 4 times per year 03/19/2022 Do you belong to any clubs o r organizations such as holiness groups, unions, fraternal or athletic groups, or [...] and heating? Not hard at all 03/19/2022 [facility] of Occupat ional Health - Occupational Stress [...] Sex Assigned at Female 03/19/2022 4:22 PM PHARMACY OPERATIONS COORDINATOR Gender Identity Female 03/19/2022 4:22 PM PHARMACY OPERATIONS COORDINATOR Sexual Orientation Straight 03/19/2022 4: 22 PM PHARMACY OPERATIONS COORDINATOR documented as of this encounter Last Filed Vital Signs Vital Sign Reading Time Taken Comments Blood Pressure 133/81 03/24/2022 8:18 AM PHARMACY OPERATIONS COORDINATOR Pulse 79 03/24/2022 8:18 AM PHARMACY OPERATIONS COORDINATOR Temperature - - Respiratory Rate - - Oxygen Saturation - - Inhaled Oxygen Concentration - - Weight 74.1 kg (163 lb 5.8 oz) 03/24/2022 8:18 A M PHARMACY OPERATIONS COORDINATOR Height - - Body Mass Index 29.91 01/13/2022 10:46 AM PHARMACY OPERATIONS COORDINATOR documented in this encounter Progress Notes * Francisco Javier Arvizu M.D., M.P.H. - 03/24/2022 8:45 AM [facility] SUBJECTIVE HISTORY OF PRESENT ILLNESS This 76-year-old patient returns for follow-up after her WatchPAT home sleep apnea test. You will recall the patient is referred by a sleep physician in the [facility], a migration specialist for symptoms of fatigue started after COVID. [...] her fatigue. I think inflammation in her CARGO AND RAMP SERVICES MANAGER partly explains some of her fatigue. We [...] while drowsy. Francisco Javier Arvizu M.D., M.P.H. MACY OPERATIONS COORDINATOR documented in this encounter Plan of Treatment Not on file documented as of this encounter Visit Diagnoses Diagnosis Fatigue- Primary Insomnia Obstructive Sleep Apnea Adult documented in this encounter
--- OUTSIDE RECORDS SUMMARY | 2023-03-17 07:19 | XMS_ITS | Referral Summary ---
Author Name Unknown Organization [facility] Address [address] [place] [address] Care Team Providers Care Brood Hatchery Manager Name Role Phone Yue Lorenz MD Primary [...] of Treatment Not on file Care Teams Brood Hatchery Manager Relationship Specialty Start Date End Date Yue Lorenz MD [facility] [address] [place] [address] PCP - General Family Practice 11/09/18
--- OUTSIDE RECORDS SUMMARY | 2023-03-17 07:19 | XMS_ITS | Encounter Summary ---
Author Name Unknown Organization [facility] Address [address] [place] [address] Care Team Providers Care Manager Desktop Name Role Phone Unavailable Primary Care Provider Unavailabl e Reason for Referral * Outpatient (Routine) - Closed Specialty Diagnoses / Procedures Referred By Paxton cortes Referred To Contact Diagnoses Fatigue Insomnia Procedures Home sleep apnea test (HSAT) Francisco Javier Arvizu M.D., M.P.H. [address] [place] [address] [facility] Referral ID Status Reason Start Date Expiration Date Visits Re quested Visits Authorized [id number] Closed 01/13/2022 01/13/2023 1 1 ING MACHINE OPERATOR AUTOMATIC Reason for Visit * Outpatient (Routine) - Closed Specialty Diagnoses / Procedures Referred By Paxton cortes Referred To Contact Diagnoses Fatigue Insomnia Procedures Home sleep apnea test (HSAT) Francisco Javier Arvizu M.D., M.P.H. [address] [place] [address] [facility] Referral ID Status Reason Start Date Expiration Date Visits Re quested Visits Authorized [id number] Closed 01/13/2022 01/13/2023 1 1 Encounter Details Date Type Department Care Team (Latest Contact Info) Description 03/17/2022 2:04 PM BRAZING MACHINE OPERATOR AUTOMATIC - 03/20/2022 11:59 PM BRAZING MACHINE OPERATOR AUTOMATIC [facility] [place], [place] [address] [place] [address] Francisco Javier Arvizu M.D., M.P.H. [address] [place] [address] Fatigue; Insomnia Discharge Disposition: Home or Self [...] often do you attend chur ch or yarsani services? More than 4 times per year 03/19/2022 Do you belong to any clubs o r organizations such as restoration groups, unions, fraternal or athletic groups, or [...] and heating? Not hard at all 03/19/2022 [facility] Occupat ional Health - Occupational Stress [...] place to sleep or slept in a skilled nursing (including now)? No 03/19/2022 Nutrition Answer Date [...] Sex Assigned at Female 03/19/2022 4:22 PM BRAZING MACHINE OPERATOR AUTOMATIC Gender Identity Female 03/19/2022 4:22 PM BRAZING MACHINE OPERATOR AUTOMATIC Sexual Orientation Straight 03/19/2022 4: 22 PM BRAZING MACHINE OPERATOR AUTOMATIC documented as of this encounter Medications at [...] (SINGULAIR) 10 mg tablet daily. 0 12/13/2021 mmbnygyjjydi-zrtzwzvx-AJ -lycopene-lutein (CENTRUM SILVER) 0.4 mg-300 mcg- 250 [...] Procedure Name Priority Date/Time Associated Diagnosis Comments [place] PRIMER CHARGER STDY UNATTND HRT RATE O2 Routine 03/18/2022 8:19 AM BRAZING MACHINE OPERATOR AUTOMATIC Fatigue Insomnia documented in this encounter Results * Home sleep apnea test (HSAT) (03/18/2022 8:19 AM BRAZING MACHINE OPERATOR AUTOMATIC) Narrative ONBASE - 03/18/2022 1:13 PM BRAZING MACHINE OPERATOR AUTOMATIC SUMMARY Home sleep apnea testing (WatchPaT) demonstrated [...]
--- OUTSIDE RECORDS SUMMARY | 2023-03-17 07:19 | XMS_ITS | Clinical Summary ---
Author Name Unknown Organization [facility] Address [address] [place] [address] Care Team Providers Care Television Installer Helper Name Role Phone Yue Lorenz MD Primary [...] age to complete this topic Care Teams Television Installer Helper Relationship Specialty Start Date End Date Yue Lorenz MD [facility] [address] [place] [address] PCP - General Family Practice 11/09/18
--- OUTSIDE RECORDS SUMMARY | 2023-03-17 07:19 | XMS_ITS | Encounter Summary ---
Author Name Unknown Organization [facility] Address [address] [place] [address] Care Team Providers Care Production Planning Manager Name Role Phone Unavailable Primary Care Provider Unavailabl e Reason for Visit * Outpatient (Routine) - Closed Specialty Diagnoses / Procedures Referred By Paxton cortes Referred To Contact Diagnoses Fatigue Insomnia Procedures Home sleep apnea test (HSAT) Francisco Javier Arvizu M.D., M.P.H. [address] [place] [address] [facility] Referral ID Status Reason Start Date Expiration Date Visits Re quested Visits Authorized [id number] Closed 01/13/2022 01/13/2023 1 1 Encounter Details Date Type Department Care Team (Latest Contact Info) Description 03/18/2022 7:11 AM VEGETABLE WASHING MACHINE OPERATOR - 03/21/2022 11:59 PM [facility] Hospital Encounter [facility] in [place], [place] [address] [place] [address] Francisco Javier Arvizu M.D., M.P.H. [address] [place] [address] Discharge Disposition: Home or Self Care Social [...] How often do you attend chur or temple services? More than 4 times per year 03/19/2022 Do you belong to any clubs o r organizations such as moravian groups, unions, fraternal or athletic groups, or [...] and heating? Not hard at all 03/19/2022 [facility] of Occupat ional Health - Occupational [...] place to sleep or slept in a assisted (including now)? No 03/19/2022 Nutrition Answer Date [...] Sex Assigned at Female 03/19/2022 4:22 PM VEGETABLE WASHING MACHINE OPERATOR Gender Identity Female 03/19/2022 4:22 PM VEGETABLE WASHING MACHINE OPERATOR Sexual Orientation Straight 03/19/2022 4: 22 PM VEGETABLE WASHING MACHINE OPERATOR documented as of this encounter Medications at [...] (SINGULAIR) 10 mg tablet daily. 0 12/13/2021 pmlgiuzlfhuy-rfqkpiar-LW -lycopene-lutein (CENTRUM SILVER) 0.4 mg-300 mcg- 250 [...] Procedure Name Priority Date/Time Associated Diagnosis Comments [place] WOMENS HEALTH NURSE PRACTITIONER STDY UNATTND HRT RATE O2 Routine 03/18/2022 8:19 AM VEGETABLE WASHING MACHINE OPERATOR Fatigue Insomnia documented in this encounter Results * Home sleep apnea test (HSAT) (03/18/2022 8:19 AM VEGETABLE WASHING MACHINE OPERATOR) Narrative ONBASE - 03/18/2022 1:13 PM VEGETABLE WASHING MACHINE OPERATOR SUMMARY Home sleep apnea testing (WatchPaT) demonstrated [...]
== END 2023-03-16 11:25 | disposition home or self-care (01) ==
LOC: NFLDREF 03-17 07:16
PROVIDERS: PCP Family Medicine; Referring Provider Family Medicine; Visit Provider Obstetrics & Gynecology
DX: N39.0 Urinary tract infection, site not specified (principal); B96.20 Unspecified Escherichia coli [E. coli] as the cause of diseases classified elsewhere; B96.4 Proteus (mirabilis) (morganii) as the cause of diseases classified elsewhere
CPT/HCPCS: 87086; 87186

== ENCOUNTER 2023-04-06 10:45 | Outpatient (CLI) | payer MEDICARE, BC, SELFPAY | END 2023-04-06 10:46 | disposition home or self-care (01) | LOC: NFLDREF 04-22 06:42 | PROVIDERS: PCP Family Medicine; Referring Provider Family Medicine; Visit Provider Obstetrics & Gynecology | DX: N39.0 Urinary tract infection, site not specified (principal); N39.3 Stress incontinence (female) (male) | CPT/HCPCS: 87086 ==

== ENCOUNTER 2023-06-16 12:42 | Outpatient (CLI) | payer MEDICARE, BC, SELFPAY ==
--- OUTSIDE RECORDS SUMMARY | 2023-06-16 12:45 | XMS_ITS | Clinical Summary ---
Author Name Unknown Organization [facility] Address [address] [place] [address] Care Team Providers Care Pool Manager Name Role Phone Unavailable Primary Care Provider Unavailabl e Source Comments Patient records contain information from all sites at [facility]. For routine questions regarding patient records, call [phone] during business hours, M-F 8:00 AM - 5:00 PM Central Time. Record requests for emergency care only can be directed to [phone] at any time.[facility] Allergies Active Allergy Reactions Criticality Noted Date Comments Cefdinir Rash 01/13/2022 Clarithromycin Rash 01/13/2022 Dextromethorphan Rash 01/13/2022 Guaifenesin Rash 01/13/2022 Latex Rash 11/22/2018 Methylprednisolone Other (see comments) 022 Blood pressure problem Moxifloxacin Other (see comments) 01/13/2022 Phenylephrine Rash 01/13/2022 Medications Medication Sig Dispensed Refills Start Date End Date Status atorvastatin (LIPITOR) 40 mg tablet 40 mg daily. 12/13/2021 Active Trelegy Ellipta 100-62.5-25 mcg inhaler daily. One puff daily 12/13/2021 Active Synthroid 88 mcg tablet Take 88 mcg by mouth daily. 12/26/2021 Active metoprolol succinate (TOPROL-XL) 50 mg 24 hr tablet 50 mg 2 (two) times a day. 11/20/2021 Active montelukast (SINGULAIR) 10 mg tablet daily. 12/13/2021 Active predniSONE (DELTASONE) 10 mg tablet Take 10 mg by mouth as needed. Excessive phlegm and shortness of breath Active amoxicillin (AMOXIL) 875 mg tablet Take 875 mg by mouth as needed. For phlegm Active albuterol 90 mcg/actuation inhaler Inhale every 6 (six) hours as needed for wheezing. Active guaiFENesin (MUCINEX) 600 mg 12 hr tablet Take 600 mg by mouth as needed for cough. Active aspirin [address] tablet Take 81 mg by mouth daily. Active multivitamin-minerals -DM-xdnpqsmz-agujhm (CENTRUM SILVER) 0.4 mg-300 mcg- 250 mcg tablet Take 1 tablet by mouth daily. Active bisacodyL (DULCOLAX) 5 mg EC tablet Take 10 mg by mouth once. Active calcium carbonate-vitamin D3 (Calcium 600 with Vitamin D3) 600 mg-10 mcg (400 unit) tablet,chewable Chew 2 (two) times a day. Active cetirizine (ZyrTEC) 10 mg tablet Take 10 mg by mouth daily. Active polyethylene glycol (MIRALAX) 17 gram powder packet Take 17 g by mouth daily. Dissolve each 17 g dose in 240 mLs (8 ounces) of beverage. Active wheat dextrin (BENEFIBER) 3 gram/3.5 gram packet Take 1 packet by mouth daily. Active diphenhydrAMINE-aceta minophen (TYLENOL PM) 25-500 mg per tablet Take 1 tablet by mouth at bedtime as needed for sleep. Active acetaminophen (TYLENOL) 500 mg tablet Take 500 mg by mouth every 6 (six) hours as needed for pain. Active UNABLE TO FIND Med Name: HIRO Schafer ctive acetaminophen (TYLENOL 8 HR) 650 mg ER tablet 1,300 mg as needed. 10/14/2021 Activ e Active Problems Problem Noted [...] How often do you attend chur or mu-ism services? More than 4 times per year 03/19/2022 Do you belong to any clubs o r organizations such as denominational groups, unions, fraternal or athletic groups, or [...] and heating? Not hard at all 03/19/2022 [facility] of Occupat ional Health - [...] place to sleep or slept in a detention (including now)? No 03/19/2022 Nutrition Answer Date [...] Sex Assigned at Female 03/19/2022 4:22 PM CANNED FOOD RECONDITIONING INSPECTOR Gender Identity Female 03/19/2022 4:22 PM CANNED FOOD RECONDITIONING INSPECTOR Sexual Orientation Straight 03/19/2022 4: 22 PM CANNED FOOD RECONDITIONING INSPECTOR Last Filed Vital Signs Vital Sign Reading Time Taken Comments Blood Pressure 133/81 03/24/2022 8:18 AM CANNED FOOD RECONDITIONING INSPECTOR Pulse 79 03/24/2022 8:18 AM CANNED FOOD RECONDITIONING INSPECTOR Temperature - - Respiratory Rate - - Oxygen Saturation 98% 01/13/2022 9:07 AM CANNED FOOD RECONDITIONING INSPECTOR room air Inhaled Oxygen Concentration - - Weight 74.1 kg (163 lb 5.8 oz) 03/24/2022 8:18 A M CANNED FOOD RECONDITIONING INSPECTOR Height 157.4 cm (5' 1.97) 01/13/2022 10:46 AM C Body Mass Index 29.91 01/13/2022 10:46 AM CANNED FOOD RECONDITIONING INSPECTOR Plan of Treatment Health Maintenance Due Date Last Done Comments Hepatitis C Screening 1945 Thyroid Stimulating Hormone (TSH) test for thyroid function 1945 Zoster Vaccines (2 of 2) 01/30/2017 12/05/2016 Depression Screening (Annual PHQ-2) 02/08/2023 Fall Risk Screen (Annual) 02/08/2023 COVID-19 Vaccine (6 - 2022-2 4 season) 2023 02/23/2023, 01/16/2022, 12/03/2020, Additional history exists DTaP,Tdap,and Td Vaccines (2 - Td or Tdap) 11/09/2028 11/09/2018 Pneumococcal vaccine (65+ years) Completed 03/12/19 17, 09/21/2013 Influenza Vaccine Completed 12/07/2022, , 11/14/2020, Additional history exists [place] [id number]
--- OUTSIDE RECORDS SUMMARY | 2023-06-16 12:45 | XMS_ITS | Referral Summary ---
Author Name Unknown Organization [facility] Address [address] [place] [address] Care Team Providers Care Family Dinner Service Specialist Name Role Phone Unavailable Primary Care Provider Unavailabl e Source Comments Patient records contain information from all sites at [facility]. For routine questions regarding patient records, call [phone] during business hours, M-F 8:00 AM - 5:00 PM Central Time. Record requests for emergency care only can be directed to [phone] at any time.[facility] Allergies Active Allergy Reactions Criticality [...] 81 mg by mouth daily. Active multivitamin-minerals -NH-imcmdayv-kcnivb (CENTRUM SILVER) 0.4 mg-300 mcg- 250 mcg [...] How often do you attend chur or scientologist services? More than 4 times per year 03/19/2022 Do you belong to any clubs o r organizations such as sabianism groups, unions, fraternal or athletic groups, or [...] and heating? Not hard at all 03/19/2022 [facility] of Occupat ional Health - Occupational [...] Sex Assigned at Female 03/19/2022 4:22 PM RECORDS SECTION SUPERVISOR Gender Identity Female 03/19/2022 4:22 PM RECORDS SECTION SUPERVISOR Sexual Orientation Straight 03/19/2022 4: 22 PM RECORDS SECTION SUPERVISOR Last Filed Vital Signs Vital Sign Reading Time Taken Comments Blood Pressure 133/81 03/24/2022 8:18 AM RECORDS SECTION SUPERVISOR Pulse 79 03/24/2022 8:18 AM RECORDS SECTION SUPERVISOR Temperature - - Respiratory Rate - - Oxygen Saturation 98% 01/13/2022 9:07 AM RECORDS SECTION SUPERVISOR room air Inhaled Oxygen Concentration - - Weight 74.1 kg (163 lb 5.8 oz) 03/24/2022 8:18 A M RECORDS SECTION SUPERVISOR Height 157.4 cm (5' 1.97) 01/13/2022 10:46 AM C Body Mass Index 29.91 01/13/2022 10:46 AM RECORDS SECTION SUPERVISOR Plan of Treatment Not on file
--- OUTSIDE RECORDS SUMMARY | 2023-06-16 12:45 | XMS_ITS ---
Author Name Unknown Organization [facility] Address [address] [place] [address] Care Team Providers Care Inner Tube Cutter Name Role Phone Unavailable Unavailable Unavailable Surgery Details Not on file Complications Check Surgery Details section. Procedure Estimated Blood Loss Check Surgery Details section. Procedure Findings Check Surgery Details section. Procedure Specimens Taken Check Surgery Details section.
--- OUTSIDE RECORDS SUMMARY | 2023-06-16 12:46 | XMS_ITS | Referral Summary ---
Author Name Unknown Organization [facility] Address [address] [place] [address] Care Team Providers Care Car Manager Name Role Phone Yue Lorenz MD [...] of Treatment Not on file Care Teams Car Manager Relationship Specialty Start Date End Date Yue Lorenz MD [facility] [address] [place] [address] PCP - General Family Practice 11/09/18
--- OUTSIDE RECORDS SUMMARY | 2023-06-16 12:46 | XMS_ITS | Clinical Summary ---
Author Name Unknown Organization [facility] Address [address] [place] [address] Care Team Providers Care Reporting Process Consultant Name Role Phone Yue Lorenz MD Primary [...] REVIEW OF HM ORDERS 1945 DEXA 1944 GLUCOSE 1944 HEPATITIS C SCREENING 1962 DTAP/TDAP/TD IMMUNIZATION (1 - Tdap) 1969 LIPID 1984 ZOSTER IMMUNIZATION (1 of 2) 1994 RSV VACCINE ( & 60+ ) (1 - 1-dose 60+ series) 2004 FALL RISK ASSESSMENT 2009 MEDICARE ANNUAL WELLNESS VISIT 2009 Pneumococcal Vaccine: 65+ Ye ars (1 of 1 - PCV) 2009 COVID-19 Vaccine ( - 2022-2 4 season) 2022 PHQ-2 (once per calendar year) 2023 INFLUENZA VACCINE (Season Ended) 2023 11/10/19 19 HPV IMMUNIZATION Aged Out No longer e [...] age to complete this topic Care Teams Reporting Process Consultant Relationship Specialty Start Date End Date Yue Lorenz MD [facility] [address] [place] [address] PCP - General Family Practice 11/09/18
--- NOTE | 2023-06-16 13:00 | XR_ITS ---
Patient: MELO HILL Facility:?[facility] Patient ID:?[id number] Site Patient ID:?[id number]. Site :?1945 Study:?DEXA-Bone Density -06/16/2023 2:06:23 PM Ordering Physician:LAURENCE Final Report: DXA BONE MINERAL DENSITY STUDY Reason for exam: Screening. Current height (in): 62. Weight (lb): 158. Menopause age: 44. Ethnicity: White. 1. Have you had a previous hip or vertebral fracture? No. 2. Have you had any fractures during your adult life which did not result from significant trauma (e.g., auto accident)? No. 3. Did either of your parents have a hip fracture? No. 4. Do you smoke? No. 5. Have you ever taken Glucocorticoids? No. 6. Do you have rheumatoid arthritis? No. 7. Do you have secondary osteoporosis? No. 8. Do you drink 3 or more alcoholic drinks per day? No. 9. Are you being treated for osteoporosis? No. 10. Have you ever taken any of the following medications: Actonel, Evista, Fosamax, Miacalcin, Reclast, Boniva, Forteo, HRT (i.e. estrogen/hormone therapy), Protelos, Prolia, Vitamin D, Calcium, other ? please specify. ANSWER: Yes, vitamin D, HRT (i.e. estrogen/hormone therapy) and calcium. 11. Do you have any of the following medical conditions: Anorexia or bulimia, asthma or emphysema, end stage renal disease, hyperparathyroidism, any seizure disorders, cancer, inflammatory bowel diseases, hysterectomy, other ? please specify. ANSWER: Yes, asthma or emphysema, hysterectomy, chronic obstructive pulmonary disease/bronchitis. 12. What was your maximum height (inches)? 62. 13. Do you perform weight bearing exercise regularly? No. 14. Do you regularly consume dairy products? Yes. 15. Do you drink caffeinated beverages? Yes. 16. At what age did your period start? 13. 17. Are you premenopausal? No. 18. How many full term pregnancies have you had? 0. 19. Have you ever missed your period for more than 6 months in a row (not including or menopause)? No. TECHNIQUE: Bone mineral density study was performed using the [employer]. FINDINGS: The results of the study expressed as bone mineral density (BMD) are as follows: Lumbar spine L1 to L4: BMD: 0.917 g/cm2. T-score: -1.2. Z-score: 1.4. Neck Left: BMD: 0.590 g/cm2. T-score: -2.3. Z-score: -0.1. Right: BMD: 0.630 g/cm2. T-score: -2.0. Z-score: 0.3. Total Left: BMD: 0.694 g/cm2. T-score: -2.0. Z-score: -0.1. Right: BMD: 0.804 g/cm2. T-score: -1.1. Z-score: 0.9. IMPRESSION: Osteopenia. *Comparison exams done prior to 07/2019 were performed on different unit, Sensorion. COMPARISON: Compared with scan of 03/19/2021, the bone mineral density has increased by 0.3 percent at the spine and decreased by 3.1 percent at the hip. Compared with scan of 03/09/2019, the bone mineral density has decreased by 2.6 percent at the spine and increased by 3.4 percent at the hip. FRAX 10-year Fracture Risk Major Osteoporotic Fracture: 16 percent Hip Fracture: 5.0 percent Reported Risk Factors: [place] () Neck BMD=0.590, BMI=28.9 Syd Dobbs M.D. [email or web address] JORDANK:[email or web address] D& Transcribed: 5:21 p.m. SP/Dictated by: Syd Dobbs MD @ 06/16/2023 2:59:00 PM Signed by:?Syd Dobbs MD @06/17/2023 7:38:14 AM (Electronic Signature)
--- NOTE | 2023-06-16 13:40 | MM_ITS ---
Patient: MELO HILL Facility:?[facility] Patient ID:?[id number] Site Patient ID:?[id number]. Site :?1945 Study:?XRay-Breast Bilateral 3D W/CAD-06/16/2023 1:48:38 PM Ordering Physician:?Yue Lorenz Final Report: BILATERAL SCREENING MAMMOGRAM WITH COMPUTER-AIDED DETECTION AND TOMOSYNTHESIS TECHNIQUE: CC and MLO views were obtained. These mammographic images have been obtained using full-field digital technique. These mammographic images were interpreted with the benefit of computer-aided detection. Breast Tomosynthesis was used in this interpretation. COMPARISON FILM: 06/09/22, 03/19/21, 03/15/20. FINDINGS: There are scattered areas of fibroglandular density. IMPRESSION: There is no radiographic evidence for malignancy. ASSESSMENT: BI-RADS Category 1: Negative RECOMMENDATION: Routine screening mammogram in 1 year. A lay language report of this examination will be provided to the patient. Esdras Alexander M.D. Diagnostic Radiologist [email or web address] DSM/sp R& Transcribed: 7:48 p.m. SP/Dictated by: Esdras Alexander MD @ 06/17/2023 8:52:00 AM Signed by:?Esdras Alexander MD @06/17/2023 8:30:02 PM (Electronic Signature)
== END 2023-06-16 12:43 | disposition home or self-care (01) ==
LOC: RAD 12:43
PROVIDERS: PCP Family Medicine; Visit Provider Family Medicine
DX: Z13.820 Encounter for screening for osteoporosis (principal); M85.89 Other specified disorders of bone density and structure, multiple sites; Z12.31 Encounter for screening mammogram for malignant neoplasm of breast
CPT/HCPCS: 77063; 77067; 77080

== ENCOUNTER 2023-08-20 07:54 | Outpatient (CLI) | payer MEDICARE, BC, SELFPAY ==
--- OUTSIDE RECORDS SUMMARY | 2023-08-20 17:15 | XMS_ITS ---
Author Organization [facility] Address [address] [place] [address] Care Team Providers Care Dispatcher Service Name Role Phone Unavailable Unavailable Unavailable Surgery Details Not on file Complications Check Surgery Details section. Procedure Estimated Blood Loss Check Surgery Details section. Procedure Findings Check Surgery Details section. Procedure Specimens Taken Check Surgery Details section.
--- OUTSIDE RECORDS SUMMARY | 2023-08-20 17:15 | XMS_ITS | Clinical Summary ---
Author Organization [facility] Address [address] [place] [address] Care Team Providers Care Inspector Floor Sub Assembly Name Role Phone Unavailable Primary Care Provider Unavailabl e Source Comments Patient records contain information from all sites at [facility]. For routine questions regarding patient records, call [phone] during business hours, M-F 8:00 AM - 5:00 PM Central Time. Record requests for emergency care only can be directed to [phone] at any time.[facility] Allergies Active Allergy Reactions Criticality [...] 81 mg by mouth daily. Active multivitamin-minerals -KR-ocmntpuo-rkofkz (CENTRUM SILVER) 0.4 mg-300 mcg- 250 mcg [...] How often do you attend chur or lutheran services? More than 4 times per year 03/19/2022 Do you belong to any clubs o r organizations such as mosque groups, unions, fraternal or athletic groups, or [...] and heating? Not hard at all 03/19/2022 [facility] - Occupational Stress Questionnaire Answer Date [...] Sex Assigned at Female 03/19/2022 4:22 PM SENIOR CONTROL SYSTEMS ENGINEER Gender Identity Female 03/19/2022 4:22 PM SENIOR CONTROL SYSTEMS ENGINEER Sexual Orientation Straight 03/19/2022 4: 22 PM SENIOR CONTROL SYSTEMS ENGINEER Last Filed Vital Signs Vital Sign Reading Time Taken Comments Blood Pressure 133/81 03/24/2022 8:18 AM SENIOR CONTROL SYSTEMS ENGINEER Pulse 79 03/24/2022 8:18 AM SENIOR CONTROL SYSTEMS ENGINEER Temperature - - Respiratory Rate - - Oxygen Saturation 98% 01/13/2022 9:07 AM SENIOR CONTROL SYSTEMS ENGINEER room air Inhaled Oxygen Concentration - - Weight 74.1 kg (163 lb 5.8 oz) 03/24/2022 8:18 A M SENIOR CONTROL SYSTEMS ENGINEER Height 157.4 cm (5' 1.97) 01/13/2022 10:46 AM C Body Mass Index 29.91 01/13/2022 10:46 AM SENIOR CONTROL SYSTEMS ENGINEER Plan of Treatment Health Maintenance Due Date Last Done Comments Hepatitis C Screening 1945 Thyroid Stimulating Hormone (TSH) test for thyroid function 1944 Zoster Vaccines (2 of 2) 01/30/2017 12/05/2016 Depression Screening (Annual PHQ-2) 02/08/2023 Fall Risk Screen (Annual) 02/08/2023 COVID-19 Vaccine (6 - 2022-2 4 season) 2023 02/23/2023, 01/16/2022, 12/03/2020, Additional history exists Influenza Vaccine (#1) 2023 , 11/21/2021, 11/14/2020, Additional history exists DTaP,Tdap,and Td Vaccines (2 - Td or Tdap) 11/09/2028 11/09/2018 Pneumococcal vaccine (65+ years) Completed 03/12/19 17, 09/21/2013 [facility] [place] [id number]
--- OUTSIDE RECORDS SUMMARY | 2023-08-20 17:15 | XMS_ITS | Referral Summary ---
Author Organization [facility] Address [address] [place] [address] Care Team Providers Care Escort Blind Name Role Phone Unavailable Primary Care Provider Unavailabl e Source Comments Patient records contain information from all sites at [facility]. For routine questions regarding patient records, call [phone] during business hours, M-F 8:00 AM - 5:00 PM Central Time. Record requests for emergency care only can be directed to [phone] at any time.[facility] Allergies Active Allergy Reactions Criticality [...] 81 mg by mouth daily. Active multivitamin-minerals -BD-ygmuxgcq-zzazsr (CENTRUM SILVER) 0.4 mg-300 mcg- 250 mcg [...] How often do you attend chur or yazidism services? More than 4 times per year 03/19/2022 Do you belong to any clubs o r organizations such as latter day groups, unions, fraternal or athletic groups, or [...] and heating? Not hard at all 03/19/2022 [facility] ionnm Health - Occupational Stress Questionnaire Answer Date [...] place to sleep or slept in a penitentiary (including now)? No 03/19/2022 Nutrition Answer Date [...] Sex Assigned at Female 03/19/2022 4:22 PM LOCK ASSEMBLER Gender Identity Female 03/19/2022 4:22 PM LOCK ASSEMBLER Sexual Orientation Straight 03/19/2022 4: 22 PM LOCK ASSEMBLER Last Filed Vital Signs Vital Sign Reading Time Taken Comments Blood Pressure 133/81 03/24/2022 8:18 AM LOCK ASSEMBLER Pulse 79 03/24/2022 8:18 AM LOCK ASSEMBLER Temperature - - Respiratory Rate - - Oxygen Saturation 98% 01/13/2022 9:07 AM LOCK ASSEMBLER room air Inhaled Oxygen Concentration - - Weight 74.1 kg (163 lb 5.8 oz) 03/24/2022 8:18 A M LOCK ASSEMBLER Height 157.4 cm (5' 1.97) 01/13/2022 10:[address] Body Mass Index 29.91 01/13/2022 10:46 AM LOCK ASSEMBLER Plan of Treatment Not on file
--- OUTSIDE RECORDS SUMMARY | 2023-08-20 17:15 | XMS_ITS | Clinical Summary ---
Author Organization [facility] Address [address] [place] [address] Care Team Providers Care Ramp Flight Attendant Name Role Phone Yue Lorenz MD Primary [...] of Treatment Not on file Care Teams Ramp Flight Attendant Relationship Specialty Start Date End Date Yue Lorenz MD [facility] [address] [place] [address] PCP - General Family Practice 11/09/18
--- OUTSIDE RECORDS SUMMARY | 2023-08-20 17:15 | XMS_ITS | Referral Summary ---
Author Organization [facility] Address [address] [place] [address] Care Team Providers Care Public Health Internship Name Role Phone Yue Lorenz MD Primary [...] file Plan of Treatment Not on file Insurance Payer Benefit Plan / Group Subscriber ID Effective Dates Phone Address Type MEDICARE MEDICARE [id number] 2009-Prese nt ATTN CLAIMS [address] [place] [address] Medicare BCBS [place]BS [place] [id number] [id number] res ent [address] [address] [place] [address] Indemnity Care Teams Public Health Internship Relationship Specialty Start Date End Date Yue Lorenz MD [facility] [address] [place] [address] PCP - General Family Practice 11/09/18
== END 2023-08-20 07:55 | disposition home or self-care (01) ==
LOC: NFLDREF 17:14
PROVIDERS: PCP Family Medicine; Referring Provider Family Medicine; Visit Provider Family Medicine
DX: G93.32 Myalgic encephalomyelitis/chronic fatigue syndrome (principal); E78.5 Hyperlipidemia, unspecified; I10 Essential (primary) hypertension; Z86.2 Personal history of diseases of the blood and blood-forming organs and certain disorders involving the immune mechanism; U09.9 Post COVID-19 condition, unspecified
CPT/HCPCS: 80053; 82607; 82728; 83540; 83550

== ENCOUNTER 2023-11-24 19:35 | Outpatient (CLI) | payer MEDICARE, BC, SELFPAY ==
--- OUTSIDE RECORDS SUMMARY | 2023-11-24 19:37 | XMS_ITS | Clinical Summary ---
Author Organization [facility] Address [place], [place] [address] Care Team Providers Care Nanotechnology Engineering Technician Name Role Phone Yue Lorenz MD Primary Care Provider + Cortes Srivastava MD Unavailable [phone] Allergies Active Allergy Reactions Criticality Noted Date Comments Cefdinir Rash 01/13/2022 Clarithromycin Rash 01/13/2022 Dextromethorphan Rash 01/13/2022 Guaifenesin Rash 01/13/2022 Latex Rash 11/22/2018 Phenylephrine Rash 01/13/2022 Medications Medication Sig Dispensed Refills Start Date End Date Status aspirin (ECOTRIN) 81 mg enteric coated tablet Take 81 mg by mouth once daily with a meal. Active atorvastatin (LIPITOR) 40 mg tablet Take 40 mg by mouth at bedtime. 12/13/2021 Active cetirizine (ZYRTEC) 10 mg tablet Take 10 mg by mouth once daily. Active Synthroid 88 mcg tablet Take 88 mcg by mouth once daily. 12/26/2021 Active metoprolol succinate (TOPROL XL) 50 mg sustained-release tablet Take 50 mg by mouth two times daily. 11/20/2021 Active predniSONE (DELTASONE) 10 mg tablet As directed 10 mg once daily with a meal. Active bisacodyL (DULCOLAX) 5 mg delayed release tablet Take 10 mg by mouth once daily. Active amoxicillin 875 mg tablet Take 875 mg by mouth one time if needed. Active acetaminophen (TYLENOL EXTRA STRGTH) 500 mg tablet Take 500 mg by mouth every 6 hours if needed. Active diphenhydrAMINE-aceta minophen 25-500 mg (TYLENOL PM) 25-500 mg tablet Take 1 Tablet by mouth once daily if needed. Active albuterol HFA (PRO-AIR; VENTOLIN; PROVENTIL) 90 mcg/actuation inhalerIndications:Br onchiectasis with acute exacerbation (HC) Inhale 2 Puffs by mouth every 4 hours if needed for Shortness of Breath 1st choice or Wheezing 2nd choice. 1 Each 11 09/23/2023 Active montelukast (SINGULAIR) 10 mg tabletIndications:Bro nchiectasis with acute exacerbation (HC) Take 1 Tablet (10 mg) by mouth at bedtime. 90 Tablet 3 09/23/2023 Active Trelegy Ellipta 100-62.5-25 mcg inhalerIndications:Br onchiectasis with acute exacerbation (HC) Inhale 1 Puff by mouth once daily. 3 Each 3 09/23/2023 Active guaiFENesin (MUCINEX) 600 mg Extended-Release tabletIndications:Bro nchiectasis with acute exacerbation (HC) Take 1 Tablet (600 mg) by mouth two times daily. 30 Each 6 09/23/2023 Active Encounters Date Type Department Care Team Description 09/28/2023 [facility] [address] [place] [phone] Cortes Srivastava MD Refill Request (predniSONE (DELTASONE) 10 mg tablet, amoxicillin 875 mg tablet) 09/23/2023 3:30 PM CDT Office Visit [facility] [address] [place] [address] Cortes Srivastava MD Consult (Annual COPD); Refill Request (Needs meds ) 09/23/2023 Travel from Last 3 Months Immunizations Name Administration Dates Next Due Influenza, High-dose Inactivated 11/09/2018 Influenza, High-dose Quadriv alent Inactivated 12/07/2022,11/21/2021,11/14/2020 Influenza, Inactivated AIIV4 (Age 65+ Years) Preserv Free 11/24/2019 Pneumococcal Poly,23-Valent (Pneumovax) 09/22/19 14 Pneumococcal conj 13-Valent (Prevnar 13) 017 Tdap 11/09/2018 Zoster (Shingrix-RZV, recombinant) 12/05/2016 Social History Tobacco Use Types Packs/Day Years Used Date Smoking Tobacco: Never Passive Smoke Exposure: Past Smokeless Tobacco: Never Tobacco Cessation:Counseling Given: Not Answered Comments:2nd hand smoke exposure for 10 yrs Social Connections Answer Date Recorded Frequency of Communication with Friends and Fami ly Not on file 09/23/2023 Sex and Gender Information Value Date Recorded Sex Assigned at Not on file Gender Identity Not on file Sexual Orientation Not on file Obstetrics History Last Filed Vital Signs Vital Sign Reading Time Taken Comments Blood Pressure 112/64 09/23/2023 3:35 PM CDT Pulse 80 09/23/2023 3:35 PM CDT Temperature - - Respiratory Rate 16 09/23/2023 3:35 PM CDT Oxygen Saturation 98% 09/23/2023 3:35 PM CDT Inhaled Oxygen Concentration - - Weight 73 kg (161 lb) 09/23/2023 3:35 PM CDT Height 154.9 cm (5' 1) 09/23/2023 3:35 PM CDT Body Mass Index 30.42 09/23/2023 3:35 PM CDT Plan of Treatment Health Maintenance Due Date Last Done Comments Depression screening for age 12+ 1957 Hepatitis C screening for ag e 18-79 1962 DEXA/DXA scan for age 65+ 2009 Zoster (shingles) series for age 50+ (2 of 2) 01/30/2017 12/05/2016 RSV vaccine for adults or (1 - 1-dose 75+ series) 11/01/2019 COVID-19 vaccine series (2023- season) 2023 02/23/2023, 01/16/2022, 12/03/2020, Additional history exists Influenza for age 65+ 10/10/2023 12/07/2022 , 11/21/2021, 11/14/2020, Additional history exists BMI (ht and wt on same day) for age 18+ 09/22/2024 09/23/2023 Tetanus booster 11/09/2028 11/09/2018 Pneumococcal series for age 65+ Completed 7, 09/21/2013 Tdap Completed 11/09/2018 Care Teams Nanotechnology Engineering Technician Relationship Specialty Start Date End Date Yue Lorenz MD [address] [place] [address] PCP - General Family Practice 11/11/18 [place] [address] [place] [address] Pulmonology Pulmonary Medicine 09/23/23
--- OUTSIDE RECORDS SUMMARY | 2023-11-24 19:37 | XMS_ITS | Clinical Summary ---
Author Organization [facility] Address [address] [place] [address] Care Team Providers Care Spares Scheduler Name Role Phone Yue Lorenz MD Primary [...] of Treatment Not on file Care Teams Spares Scheduler Relationship Specialty Start Date End Date Yue Lorenz MD [facility] [address] [place] [address] PCP - General Family Practice 11/09/18
--- OUTSIDE RECORDS SUMMARY | 2023-11-24 19:37 | XMS_ITS | Clinical Summary ---
Author Organization [facility] Address [address] [place] [id number] Care Team Providers Care Bulbs Farmworker Name Role Phone Unavailable Primary Care Provider Unavailabl e Source Comments Patient records contain information from all sites at [facility]. For routine questions regarding patient records, call [phone] during business hours, M-F 8:00 AM - 5:00 PM Central Time. Record requests for emergency care only can be directed to [phone] at any time.[facility] Allergies Active Allergy Reactions Criticality Noted Date Comments Cefdinir Rash 01/13/2022 Clarithromycin Rash 01/13/2022 Dextromethorphan Rash 01/13/2022 Guaifenesin Rash 01/13/2022 Latex Rash 11/22/2018 Methylprednisolone Other (see comments) 022 Blood pressure problem Moxifloxacin Other (see comments) 01/13/2022 Phenylephrine Rash 01/13/2022 Medications * This document contains information received from the source organization and may not represent a complete record from that organization. atorvastatin (LIPITOR) 40 mg tablet 40 mg daily. 2 Active Trelegy Ellipta 100-62.5-25 mcg inhaler daily. One puff daily 2 Active Synthroid 88 mcg tablet Take 88 mcg by mouth daily. 2 Active metoprolol succinate (TOPROL-XL) 50 mg 24 hr tablet 50 mg 2 (two) times a day. 2 Active montelukast (SINGULAIR) 10 mg tablet daily. 2 Active predniSONE (DELTASONE) 10 mg tablet Take [...] Take 81 mg by mouth daily. Active multivitamin-mi xvqqed-PY-xhsrq rosalia-lutein (CENTRUM SILVER) 0.4 mg-300 mcg- 250 mcg tablet Take 1 tablet by mouth daily. Active bisacodyL (DULCOLAX) 5 mg EC tablet Take 10 mg by mouth once. Active calcium carbonate-vitam in D3 (Calcium 600 with Vitamin D3) 600 [...] Take 1 packet by mouth daily. Active diphenhydrAMINE -acetaminophen (TYLENOL PM) 25-500 mg per tablet Take 1 tablet by mouth at bedtime as needed for sleep. Active acetaminophen (TYLENOL) 500 mg tablet Take 500 mg by mouth every 6 (six) hours as needed for pain. Active UNABLE TO FIND Med Name: ZZZ Quill Active acetaminophen (TYLENOL 8 HR) 650 mg ER tablet 1,300 mg as needed. 2 Active Active Problems Problem Noted Date Diagnosed Date [...] often do you attend chur ch or roman catholic services? More than 4 times per year 03/19/2022 Do you belong to any clubs o r organizations such as cheondoism groups, unions, fraternal or athletic groups, or [...] heating? Not hard at all 03/19/2022 [facility] - Occupational [...] degree you have received? 12th grade 03/19/2022 Comments No Sex and Gender Information Value Date Recorded Sex Assigned at Female 03/19/2022 4:22 PM HEALTH ASSOCIATE Legal Sex Female 5:48 AM HEALTH ASSOCIATE Gender Identity Female 03/19/2022 4:22 PM HEALTH ASSOCIATE Sexual Orientation Straight 03/19/2022 4: 22 PM HEALTH ASSOCIATE Last Filed Vital Signs Vital Sign Reading Time Taken Comments Blood Pressure 133/81 03/24/2022 8:18 AM HEALTH ASSOCIATE Pulse 79 03/24/2022 8:18 AM HEALTH ASSOCIATE Temperature - - Respiratory Rate - - Oxygen Saturation 98% 01/13/2022 9:07 AM HEALTH ASSOCIATE room air Inhaled Oxygen Concentration - - Weight 74.1 kg (163 lb 5.8 oz) 03/24/2022 8:18 A M HEALTH ASSOCIATE Height 157.4 cm (5' 1.97) 01/13/2022 10:46 AM Cindy ARANGO Body Mass Index 29.91 01/13/2022 10:46 AM HEALTH ASSOCIATE Plan of Treatment Health Maintenance Due Date Last Done Comments Hepatitis C Screening 1945 Thyroid Stimulating Hormone (TSH) test for thyroid function 1945 Zoster Vaccines (2 of 2) 01/30/2017 12/05/2016 RSV vaccine - (32-3 6 weeks) or 60+ years (1 - 1-dose 75+ series) 11/01/2019 Depression Screening (Annual PHQ-2) 02/08/2023 Fall Risk Screen (Annual) 02/08/2023 COVID-19 Vaccine (6 - 2023-2 5 season) 2023 02/23/2023, 01/16/2022, 12/03/2020, Additional history exists Influenza Vaccine (#1) 2023 , 11/21/2021, 11/14/2020, Additional history exists DTaP,Tdap,and Td Vaccines (2 - Td or Tdap) 11/09/2028 11/09/2018 Pneumococcal vaccine (65+ years) Completed 03/12/19 17, 09/21/2013 Insurance MEDICARE [facility] [place] [id number]
--- OUTSIDE RECORDS SUMMARY | 2023-11-24 19:37 | XMS_ITS | Referral Summary ---
Author Organization [facility] Address [address] [place] [address] Care Team Providers Care Welt Cutter Name Role Phone Unavailable Primary Care Provider Unavailabl e Source Comments Patient records contain information from all sites at [facility]. For routine questions regarding patient records, call [phone] during business hours, M-F 8:00 AM - 5:00 PM Central Time. Record requests for emergency care only can be directed to [phone] at any time.[facility] Allergies Active Allergy Reactions [...] 81 mg by mouth daily. Active multivitamin-mi wykxxt-BN-umdua rosalia-lutein (CENTRUM SILVER) 0.4 mg-300 mcg- 250 [...] often do you attend chur ch or baptist services? More than 4 times per year 03/19/2022 Do you belong to any clubs o r organizations such as christianity groups, unions, fraternal or athletic groups, or [...] and heating? Not hard at all 03/19/2022 [facility] - [...] place to sleep or slept in a nursing home (including now)? No 03/19/2022 Nutrition Answer Date [...] Sex Assigned at Female 03/19/2022 4:22 PM AIR MOTOR REPAIRER Legal Sex Female 5:48 AM AIR MOTOR REPAIRER Gender Identity Female 03/19/2022 4:22 PM AIR MOTOR REPAIRER Sexual Orientation Straight 03/19/2022 4: 22 PM AIR MOTOR REPAIRER Last Filed Vital Signs Vital Sign Reading Time Taken Comments Blood Pressure 133/81 03/24/2022 8:18 AM AIR MOTOR REPAIRER Pulse 79 03/24/2022 8:18 AM AIR MOTOR REPAIRER Temperature - - Respiratory Rate - - Oxygen Saturation 98% 01/13/2022 9:07 AM AIR MOTOR REPAIRER room air Inhaled Oxygen Concentration - - Weight 74.1 kg (163 lb 5.8 oz) 03/24/2022 8:18 A M AIR MOTOR REPAIRER Height 157.4 cm (5' 1.97) 01/13/2022 10:46 AM Cindy ARANGO Body Mass Index 29.91 01/13/2022 10:46 AM AIR MOTOR REPAIRER Plan of Treatment Not on file Insurance MEDICARE [facility]
--- OUTSIDE RECORDS SUMMARY | 2023-11-24 19:37 | XMS_ITS | Referral Summary ---
Author Organization [facility] Address [address] [place] [address] Care Team Providers Care Glycerin Supervisor Name Role Phone Yue Lorenz MD Primary [...] of Treatment Not on file Care Teams Glycerin Supervisor Relationship Specialty Start Date End Date Yue Lorenz MD [facility] [address] [place] [address] PCP - General Family Practice 11/09/18
--- OUTSIDE RECORDS SUMMARY | 2023-11-24 19:37 | XMS_ITS ---
Author Organization [facility] Address [address] [place] [address] Care Team Providers Care Housing Development Specialist Name Role Phone Unavailable Unavailable Unavailable Surgery Details Not on file Complications Check Surgery Details section. Procedure Estimated Blood Loss Check Surgery Details section. Procedure Findings Check Surgery Details section. Procedure Specimens Taken Check Surgery Details section.
--- NOTE | 2023-12-14 08:54 | W.PM.SLEEP ---
Sleep Study Details Details Interpreting Provider: Lizette Date of Sleep Study: 11/24/23 Sleep Study Details: STUDY TYPE:? Home on a 10 ? BMI:? 29.3 ORDERING PROVIDER:Chente Bauer INDICATION:? Concerned about sleep apnea ? SLEEP SUMMARY:? 422 minutes monitored RESPIRATORY SUMMARY:? AHI per CMS guidelines 18.8, per rule 1A guidelines 31.6 the vast majority this study was done on the right lateral position Low oxygen 83 3.8% of study oxygen less than 90% Snoring 3.7% PERIODIC LIMB MOVEMENTS OF SLEEP:? Not recorded CARDIAC:? Range 61-98, mean 74.6 IMPRESSION:? Moderate obstructive sleep apnea with significant desaturations RECOMMENDATION: Treatment options include AutoSet CPAP versus in-lab titration.
== END 2023-11-24 19:36 | disposition home or self-care (01) ==
LOC: SLEEP 19:36
PROVIDERS: PCP Family Medicine; Visit Provider Otolaryngology
DX: G47.33 Obstructive sleep apnea (adult) (pediatric) (principal)
CPT/HCPCS: 95806

== ENCOUNTER 2024-02-11 11:00 | Outpatient (RCR) | payer MEDICARE, BC, SELFPAY ==
--- NOTE | 2023-11-19 12:47 | PT.OPEX ---
PT [facility] Outpatient Eval PT [facility] Outpatient Eval Start: 11/19/23 08:26 Freq: Status: Active Protocol: Document 11/19/23 08:26 KATIA (Rec: 11/19/23 12:42 KATIA [id number]) E-signed By Airam Baca, PT Physical Therapy Outpatient Evaluation Insurance Information Recert Due Date 02/17/24 Insurance Name Medicare B Medical Diagnosis L shoulder impaired ROM, L shoulder impaired strength, generalized deconditioning Treating Diagnosis impaired functional strength, L shoulder impaired ROM, L shoulder impaired strength Referring MD Loretta Lorenz Subjective Preferred Name Hawa Goodson She was having severe L shoulder pain in August and pain in the buttocks and down legs . She has chronic back. 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 She takes Tylenol Arthritis at 10 am which helps her to be functional. She has had back off and on for years. The L shoulder has been constant. She has had R TKA in 2013. She sits in the recliner a lot, less painful when stationary. No current exercise program. She has COPD and she feels she can't breathe with walking, uses rescue inhaler. She can't get down her stairs to the treadmill. She has post-covid with debilitating fatigue. She does not presently do breathing exercises or have a pulse oximeter. She thinks her L shoulder started to hurt in July. She has urinary incontinence and chronic constipation. Pain Comments Hygiene of wiping c L arm, reaching behind back for dressing, pain across buttocks and down to heel with flexion . Picking up items from floor. Donning clothing for upper body. Turning over in bed. Difficulty getting out of recliner. Date of Last Physician Visit 08/23/23 Current Work Status Retired Precautions Treatment Precautions/Contraindications FMS, COPD, long haul COVID, osteopenia, latex allergy, Therapy Limitations/Systems Review Not Limited Objective Other/Pertinent Objective AROM shoulders: Flex: R 138, L 120 Pn Abd: R 124, L 102 pn ER: C5 c head forward R, 36 at side L IR: L5 R c pn, to abdomen L CROM: rotation approx 15 degrees bilat- eye and trunk rotation compensation Posture: flattened thoracic kyphosis, forward head, PPT in sitting with reduced lumbar lordosis Quadrant test Neg for lumbar spine Posterior hip pain with forward flexion R hip IR of 19 degrees, L hip IR 10 Glute strength: poor as observed by attempt at bridge and sit/stand R knee AROM: 10-115 L knee AROM 13-120 LE strength: globally 4-/5 except L hip flexor 3+, L quad 3- Accessory breathing noted Functional Test Performed & Score Reports daily urinary leakage Reports chronic constipation with straining to defecate Pt got dizzy from supine position Assessment Assessment/Impression Pt is a 78 yr old female c chronic pain and deconditioned status. She has complex medical hx and hx of trauma affecting her ability to participate is IADLs and ADLs. She has become more sedentary and deconditioned while working through pain. She demonstrates increased pain with quick cramping of HS from attempting to bridge. She has fear of exercise reducing breathing capacity c long COVID and COPD. Primary Functional Limitations exercises, bending forward, walking for exercises, strengthening, transferring from recliner, Plan of Care Rehabilitation Potential Fair Physical Therapy Goals Pt will dress mod indep s shoulder limitation in 12 weeks. Pt will demonstrate diaphragmatic breathing to improve oxygen capacity for strengthening and regulating nervous system in 4 weeks. Pt will complete low impact exercise program of interval to enhance confidence in strengthening and activity in 8 weeks. Pt will demonstrate increased ability to retireve objects from floor in 9 weeks. Pt will report improved bowel hygiene with evacuation s straining in 12 weeks. Pt will report 50% improvement in bladder leakage for QOL in 12 weeks. Treatment Plan/Direct Interventions Electrical Stimulation,Gait Training,Heat,Manual Therapy, Neuromuscular Re-ed,Self-Care/ Home Management,Therapeutic Activities,Therapeutic Exercises,Ultrasound Frequency/Duration 1-2x/week for 12 weeks Patient Will Be Discharged From Therapy Completion of LTG(s),Skills Plateau,Independent w/HEP, Independently Progressing Evaluation Billing PT Eval No Charge No Complexity High Certification Information Initial Certification Date 11/19/23 Ending Certification Date 02/17/24 Provider Signature Required Yes Provider Signature Shows Agreement With POC & Medical Necessity Physician NPI Number Write NPI# Here Physician Comment/Change : Physician Signature & Date Requested Please Sign/Date Here
== END 2024-03-29 13:52 | disposition home or self-care (01) ==
PROVIDERS: PCP Family Medicine; Visit Provider Family Medicine
DX: R29.898 Other symptoms and signs involving the musculoskeletal system (principal); M25.512 Pain in left shoulder; G89.29 Other chronic pain; M75.02 Adhesive capsulitis of left shoulder; Z74.09 Other reduced mobility; Z51.89 Encounter for other specified aftercare
CPT/HCPCS: 97112; 97140; 97163; 97535

== ENCOUNTER 2024-02-23 07:30 | Outpatient (CLI) | payer MEDICARE, BC, SELFPAY | END 2024-02-23 07:31 | disposition home or self-care (01) | LOC: NFLDREF 02-28 03:57 | PROVIDERS: PCP Family Medicine; Referring Provider Family Medicine; Visit Provider Family Medicine | DX: M81.0 Age-related osteoporosis without current pathological fracture (principal); E78.5 Hyperlipidemia, unspecified; I10 Essential (primary) hypertension; D64.9 Anemia, unspecified; E03.9 Hypothyroidism, unspecified; Z13.21 Encounter for screening for nutritional disorder | CPT/HCPCS: 80053; 80061; 82306; 82607; 82728; 84443 ==

== ENCOUNTER 2024-07-18 10:02 | Outpatient (CLI) | payer MEDICARE, BC, SELFPAY ==
--- NOTE | 2024-07-18 10:15 | CRLHL7_ITS ---
For Patients: As a result of the Century Cures Act, medical imaging exams and procedure reports are released immediately into your electronic medical record. You may view this report before your referring provider. If you have questions, please contact your health care provider. INDICATION: BILATERAL SCREENING MAMMOGRAM, ASYMPTOMATIC 78 Y/O FEMALE COMPARISON: 06/16/2023, 06/09/2022, 03/19/2021 TECHNIQUE: Digital mammogram in CC and MLO projections including computer-aided detection (CAD) and tomosynthesis. BREAST COMPOSITION: There are scattered areas of fibroglandular density. FINDINGS: No suspicious findings. ASSESSMENT: BI-RADS 1 Negative RECOMMENDATION: Annual screening mammogram. A lay language report of this examination will be provided to the patient. Dictated by: Esdras Alexander MD @ 07/20/2024 11:18:29 (Electronically Signed)
== END 2024-07-18 10:03 | disposition home or self-care (01) ==
LOC: MAMMO 10:03
PROVIDERS: PCP Family Medicine; Visit Provider Family Medicine
DX: Z12.31 Encounter for screening mammogram for malignant neoplasm of breast (principal)
CPT/HCPCS: 77063; 77067

== ENCOUNTER 2024-08-01 14:22 | Outpatient (CLI) | payer MEDICARE, BC, SELFPAY ==
--- NOTE | 2024-08-01 14:45 | CRLHL7_ITS ---
For Patients: As a result of the Century Cures Act, medical imaging exams and procedure reports are released immediately into your electronic medical record. You may view this report before your referring provider. If you have questions, please contact your health care provider. INDICATION: Harris neural disorder Technique : Sagittal T1, sagittal and axial T2 and sagittal STIR images. Findings : Relative straightening of the usual cervical curve. Multilevel spondylosis. Fusion of multiple left side facet joints. No fracture seen. The lower brainstem cervical and upper thoracic spinal cord appear grossly normal. No stenosis at the foramen magnum level C1 or C2 levels. At C2-3 no disc herniation central or lateral stenosis. At C3-4 mild posterior disc bulging and marginal spur formation without stenosis of the spinal canal. Left side facet arthrosis with facet osteophytes and associated moderate bony stenosis of the left neural foramina. At C4-5 partial fusion of endplates. No disc herniation or stenosis of the spinal canal and neural foramina are adequately patent. Fusion of left C4 and C5 facets. At C5-6 mild broad posterior disc bulging and marginal spur formation without stenosis of the spinal canal [id number] bilateral neural foraminal narrowing At C6-7 narrowed disc space partial fusion of the endplates. Partial fusion of the left-sided facet joint. No stenosis of the spinal canal or neural foramen At C7-T1 no disc herniation or stenosis of the spinal canal or neural foramen Impression: 1. Multilevel cervical spondylosis. 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 2. At C5-6 marginal osteophytes with associated [id number] bilateral bony neural foraminal narrowing. 3. No high-grade central stenosis. Normal appearing cervical spinal cord. Dictated by Umberto Torres MD @ 08/02/2024 12:30:54 PM (Electronically Signed)
--- OUTSIDE RECORDS SUMMARY | 2024-08-02 00:52 | XMS_ITS | Clinical Summary ---
Author Organization [facility] Address [address] [place] [address] Care Team Providers Care Painter And Body Mechanic Apprentice Name Role Phone Yue Lorenz MD Primary Care Provider + Cortes Srivastava MD Unavailable [phone] Allergies Active Allergy Reactions Criticality Noted Date Comments Cefdinir Rash 01/13/2022 Clarithromycin Rash 01/13/2022 Dextromethorphan Rash 01/13/2022 Duloxetine Agitation,Anxiety,Co nfusion,Dizzines s,Intolerance-Can't Take,Shortness Of Breath 07/07/2024 Latex Rash 11/22/2018 Phenylephrine Rash 01/13/2022 Medications aspirin (ECOTRIN) 81 mg enteric coated tablet Take 81 mg by mouth once daily with a meal. Active atorvastatin (LIPITOR) 40 mg tablet Take 40 mg by mouth at bedtime. 2 Active cetirizine (ZYRTEC) 10 mg tablet Take 10 mg by mouth once daily. Active Synthroid 88 mcg tablet Take 88 mcg by mouth once daily. 2 Active metoprolol succinate (TOPROL XL) 50 mg sustained-releas e tablet Take 50 mg by mouth two times daily. 2 Active bisacodyL (DULCOLAX) 5 mg delayed release tablet Take 10 mg by mouth once daily. Active acetaminophen (TYLENOL EXTRA STRGTH) 500 mg tablet Take 500 mg by mouth every 6 hours if needed. Active diphenhydrAMINE- acetaminophen 25-500 mg (TYLENOL PM) 25-500 mg tablet Take 1 Tablet by mouth once daily if needed. Active albuterol HFA 90 mcg/actuation inhalerIndicatio ns:Bronchiectasi s with acute exacerbation (HC) Inhale 2 Puffs by mouth every 4 hours if needed for Shortness of Breath 1st choice or Wheezing 2nd choice. 1 Each 5 Active guaiFENesin 600 mg Extended-Release tabletIndication s:cough,bronchie ctasis Take 1 Tablet (600 mg) by mouth two times daily. 60 Each 5 Active montelukast 10 mg tabletIndication s:Bronchiectasis with acute exacerbation (HC) Take 1 Tablet (10 mg) by mouth at bedtime. 90 Tablet 5 Active predniSONE 10 mg tabletIndication s:Bronchiectasis with acute exacerbation (HC) 30mg (3 tabs) daily x2 days --> 20mg (2 tabs) daily x2 days --> 10mg (1 tab) daily x2 days --> stop. 20 Tablet 2 5 Active amoxicillin-clav ulanate 875-125 mg tabletIndication s:lower respiratory infection Take 1 Tablet by mouth two times daily with meals. 14 Tablet 2 5 Active fluticasone fur-umeclidinium -vilanterol 100-62.5-25 mcg inhalerIndicatio ns:Bronchiectasi s without complication (HC) Inhale 1 Puff by mouth once daily. 180 Each 5 Active predniSONE (DELTASONE) 10 mg tablet As directed 10 mg once daily with a meal. 07/08/19 25 Discontin ued(*Med complete/ Regimen complete/ Level of care change) amoxicillin 875 mg tablet Take 875 mg by mouth one time if needed. 07/08/19 25 Discontin ued(*Med complete/ Regimen complete/ Level of care change) albuterol HFA (PRO-AIR; VENTOLIN; PROVENTIL) 90 mcg/actuation inhalerIndicatio ns:Bronchiectasi s with acute exacerbation (HC) Inhale 2 Puffs by mouth every 4 hours if needed for Shortness of Breath 1st choice or Wheezing 2nd choice. 1 Each 4 07/08/19 25 Discontin ued(Reord er (E-cancel not sent)) montelukast (SINGULAIR) 10 mg tabletIndication s:Bronchiectasis with acute exacerbation (HC) Take 1 Tablet (10 mg) by mouth at bedtime. 90 Tablet 3 4 07/08/19 25 Discontin ued(Reord er (E-cancel not sent)) Trelegy Ellipta 100-62.5-25 mcg inhalerIndicatio ns:Bronchiectasi s with acute exacerbation (HC) Inhale 1 Puff by mouth once daily. 3 Each 3 4 07/08/19 25 Discontin ued(Reord er (E-cancel not sent)) guaiFENesin (MUCINEX) 600 mg Extended-Release tabletIndication s:Bronchiectasis with acute exacerbation (HC) Take 1 Tablet (600 mg) by mouth two times daily. 30 Each 6 4 07/08/19 25 Discontin ued(Reord er (E-cancel not sent)) Trelegy Ellipta 100-62.5-25 mcg inhalerIndicatio ns:Bronchiectasi s with acute exacerbation (HC) Inhale 1 Puff by mouth once daily. 3 Each 3 5 07/08/19 25 Discontin ued(*Med complete/ Regimen complete/ Level of care change) Active Problems Problem Noted Date Diagnosed Date Chronic obstructive pulmonary disease 07/07/2024 Bronchiectasis without complication 07/07/2024 Dyspnea on exertion 07/07/2024 Neuromuscular respiratory weakness 07/07/2024 Encounters Date Type Department Care Team Description 07/07/2024 1:20 PM CDT Office Visit [facility] [address] [place] [address] Robyn Brown MD COPD (Copd follow up/Has questions about taking mucinex twice daily./Needs refills of everything including abx and prednisone/Has amoxicillin and prednisone PRN but has not needed to take either./Had a falre up a few weeks ago with a lot of phlegm, but is better now.) 07/06/2024 Travel from Last 3 Months Immunizations Immunization Administration Dates Next Due Influenza, High-dose Inactivated [...] Comments:2nd hand smoke exposure for 10 yrs Comments Unknown Sex and Gender Information Value Date Recorded Sex Assigned at Not on file Legal Sex Female 3:51 PM CDT Gender Identity Not on file Sexual Orientation Not on file Obstetrics History Last Filed Vital Signs Vital Sign Reading Time Taken Comments Blood Pressure 125/72 07/07/2024 1:24 PM CDT Pulse 83 07/07/2024 1:24 PM CDT Temperature - - Respiratory Rate 19 07/07/2024 1:04 PM CDT Oxygen Saturation 97% 07/07/2024 1:24 PM CDT Inhaled Oxygen Concentration - - Weight 71.7 kg (158 lb) 07/07/2024 1:04 PM CDT Height 154.9 cm (5' 1) 07/07/2024 1:04 PM CDT Body Mass Index 29.85 07/07/2024 1:04 PM CDT Plan of Treatment Health Maintenance Due Date Last Done Comments Depression screening for age 12+ 1957 Hepatitis C screening for age 18-79 1963 DEXA/DXA scan for age 65+ 2009 Medicare Wellness for age 65+ 2009 Zoster (shingles) series for age 50+ (2 of 2) 01/30/2017 12/05/2016 RSV vaccine for adults or (1 - 1-dose 75+ series) 11/01/2019 COVID-19 vaccine series ( season) 2023 02/23/2023, 01/16/2022, 12/03/2020, Additional history exists Influenza Vaccine (Season Ended) 2024 11/24/2019, 11/09/2018 BMI (ht and wt on same day) for age 18+ 07/07/2025 07/07/2024, 09/23/2023 Tetanus booster 11/09/2028 11/09/2018 Pneumococcal series for age 50+ Completed 03/12/2016, 09/21/2013 Tdap Completed 11/09/2018 Hepatitis B series for 19+ Aged Out N o longer eligible based on patient's age to complete this topic Procedures Procedure Name Priority Date/Time Associated Diagnosis Comments SCAN-PULMONARY FUNCTION TEST 07/07/2024 12:00 AM CDT from Last 3 Months Results * SCAN-PULMONARY FUNCTION TEST (07/07/2024 12:00 AM CDT) us Scanner OTHER Final Result from Last 3 Months Insurance MEDICARE PB ONLY [facility] MEDICARE PART B HB ONLY Care Teams Painter And Body Mechanic Apprentice Relationship Specialty Start Date End Date Yue Lorenz MD [address] [place] [address] PCP - General Family Practice 11/11/18 [place] [address] [place] [address] Pulmonology Pulmonary Medicine 09/23/23
--- OUTSIDE RECORDS SUMMARY | 2024-08-02 00:52 | XMS_ITS | Clinical Summary ---
Author Organization [facility] Address [address] [place] [address] Care Team Providers Care Criminal Justice Program Director Name Role Phone Yue Lorenz MD Primary Care Provider + Allergies Active Allergy Reactions Criticality Noted Date Comments Latex 11/22/2018 Social History Tobacco Use Types Packs/Day Years Used Date Smoking Tobacco: Never Assessed Adolescent Education Answer Date Record ed Getting School Help Needed Not on file 10/30 Comments Unknown Sex and Gender Information Value Date Recorded Sex Assigned at Not on file Legal Sex Female 1:36 PM CDT Gender Identity Not on file Sexual Orientation Not on file Plan of Treatment Not on file Insurance MEDICARE [facility] MEDICARE SUPPLEMENT Care Teams Criminal Justice Program Director Relationship Specialty Start Date End Date Yue Lorenz MD [facility] & [address] [phone] PCP - General Family Practice 11/09/18
== END 2024-08-01 14:23 | disposition home or self-care (01) ==
LOC: MRI 14:25
PROVIDERS: PCP Family Medicine; Referring Provider Internal Medicine Pulmonary Disease; Visit Provider Family Medicine
DX: G70.9 Myoneural disorder, unspecified (principal); M47.892 Other spondylosis, cervical region; M50.222 Other cervical disc displacement at C5-C6 level; J99 Respiratory disorders in diseases classified elsewhere; R29.898 Other symptoms and signs involving the musculoskeletal system
CPT/HCPCS: 72141